=== PATIENT | male | born 1960 | race Caucasian/White ===

== ENCOUNTER 2017-03-28 06:25 | Inpatient (IN) | payer OTHER, MEDICARE ==
[~2017-03-28] VITALS: Ht 188 cm; Wt 94.3 kg
[~2017-03-28 06:25] MED LIST: CETI10 PO; ENAL20TA PO; GABA300C5 PO; HUMI40KI SQ; HYDR12.56 PO; METO100T9 PO; OXYC1TAB36 PO; PANT40TA3 PO; PARO20TA2 PO; TRAM50TA PO
[2017-03-28] MEDS ORDERED: ACETAMINOPHEN 1000 MG/100 ML 100 ML IV ONE (06:57)
[2017-03-28] MEDS ORDERED: THROMBIN (TOPICAL) 5,000 UNIT VIAL ONE (06:57)
[2017-03-28] MEDS ORDERED: BUPIVACAINE HCL PF 0.5% 30 ML VIAL ONE (06:57)
[2017-03-28] MEDS ORDERED: ceFAZolin 2 GM PREMIX 50 ML ONE ×2 (06:57→13:29)
[2017-03-28] MEDS ORDERED: VANCOMYCIN HCL 1000 MG VIAL ONE (06:57)
[2017-03-28] MEDS ORDERED: KETAMINE HCL 500 MG/5 ML VIAL ONE (06:58)
[2017-03-28] MEDS ORDERED: HYDROmorphone HCL PF 2 MG/ML VIAL ONE (06:58)
[2017-03-28] MEDS ORDERED: GENTAMICIN SULFATE 80 MG/2 ML VIAL ONE (06:58)
[2017-03-28] MEDS ORDERED: PROPOFOL 500 MG/50 ML INJ 100 ML ONE ×3 (06:58→13:38)
[2017-03-28] MEDS ORDERED: GELFOAM SIZE 100 ONE (06:58)
[2017-03-28] MEDS ORDERED: FAMOTIDINE 20 MG/2 ML VIAL ONE (06:59)
[2017-03-28] MEDS ORDERED: METOPROLOL TARTRATE 25 MG TAB PO PRN (07:00)
[2017-03-28] MEDS ORDERED: INSULIN HUMAN REGULAR 1,000 UNITS/10 ML VIAL SQ PRN (07:00)
[2017-03-28] MEDS ORDERED: LACTATED RINGER'S 1000 ML IV PRN (07:00)
[2017-03-28] MEDS ORDERED: CHLORHEXIDINE GLUCONATE 2 % 1 PACK (2 CLOTHS) TOPICAL PRN (07:00)
[2017-03-28] MEDS ORDERED: VANCOMYCIN HCL 1000 MG ON-CALL/NS 250 ML IV SCH ×2 (07:00)
[2017-03-28] MEDS ORDERED: POVIDONE IODINE 5% (ANTISEPSIS KIT) 4 APPLICATIONS EACH NARE PRN (07:00)
[2017-03-28] MEDS ORDERED: SODIUM CHLORID 0.9% 500 ML IV PRN (07:00)
[2017-03-28] MEDS ORDERED: RESP: ALBUTEROL CONC 2.5 MG/0.5 ML NEB ONE (08:23)
[2017-03-28] MEDS ORDERED: GELATIN 12 MM/7 MM FOAM ONE (13:29)
[2017-03-28] MEDS: PCA - TOTAL MG DILAUDID DELIVERED PER SHIFT SCH ×2 (14:30→22:00)
[2017-03-28] MEDS ORDERED: ACETAMINOPHEN/HYDROcodone 325 MG/10 MG TAB PO PRN (14:30)
[2017-03-28] MEDS ORDERED: DEXTROSE 50% IN WATER 50 ML SYRINGE IV PUSH PRN (14:30)
[2017-03-28] MEDS ORDERED: NALOXONE HCL 0.4 MG/ML AMP IV PUSH PRN (14:30)
[2017-03-28] MEDS ORDERED: diphenhydrAMINE HCL 50 MG/ML VIAL IV PUSH PRN (14:30)
[2017-03-28] MEDS ORDERED: cloNIDine HCL 0.1 MG TAB PO/NG PRN (14:30)
[2017-03-28] MEDS ORDERED: MENTHOL LOZENGE BUCCAL PRN (14:30)
[2017-03-28] MEDS ORDERED: BISACODYL 10 MG SUPP RECTAL PRN (14:30)
[2017-03-28] MEDS ORDERED: GLUCAGON 1 MG/ML VIAL OTHER PRN (14:30)
[2017-03-28] MEDS ORDERED: SODIUM CHLORIDE 0.9% FLUSH 5 ML FLUSH IVF PRN (14:30)
[2017-03-28] MEDS ORDERED: ONDANSETRON HCL 4 MG/2 ML VIAL IV PUSH PRN (14:30)
[2017-03-28] MEDS ORDERED: ACETAMINOPHEN 325 MG TAB PO PRN (14:30)
[2017-03-28] MEDS ORDERED: DO NOT ADM ANY ANTICOAGULANT DRUGS PRN (14:55)
[2017-03-28] MEDS: SODIUM CHLOR 0.9% 1000 ML INJ 1,000 ML IV SCH ×2 (15:35)
[2017-03-28] MEDS: RESP: ALBUTEROL 2.5 MG/3 ML NEB (SCH) INH ×3 (16:00→23:24)
[2017-03-28] MEDS: INSULIN ASPART SUPPLEMENTAL SCALE SQ SCH ×2 (16:20→21:00)
[2017-03-28] MEDS ORDERED: *RESP: ALBUTEROL 2.5 MG/3 ML NEB (PRN) PERIprocedural Use ONLY NEB ONE (16:21)
--- NOTE | 2017-03-28 16:26 | PD.OP ---
Operative Report Date of Surgery: Mar 28, 2017 Preoperative Diagnosis: Lumbar degenerative disk disease adjacent to a prior fusion Postoperative Diagnosis: Lumbar degenerative disk disease adjacent to a prior fusion Procedure: L3-L4 decompressive laminectomy, interbody arthrodesis using Peek cage filled with autologous iliac crest bone graft, L3-L4 posterolateral fusion using autologous bone graft, with demineralized bone matrix, L3-L4 instrumental fixation using transpedicular screws and rods, microsurgical dissection. Anesthesia: general Surgeon: Dewayne Figueroa Pre K Lead Teacher(s): Kaela Blanco Operation and Findings: INTRAOPERATIVE FINDINGS Severe degenerative severe adjacent level degeneration at L3-L4 INDICATIONS FOR PROCEDURE Mr Maher is a 56 year-old male who presented with intractable mechanical back pain and william evidence of lower extremity L4 radiculopathy. He was found to have severe degenerative disk disease at L3-4, adjacent to a multilevel fusion. He failed maximum nonsurgical management including multiple modalities of conservative treatment as well as pain management interventions by an interventional pain specialist. The patient has undergone a previous surgical procedure. A redo surgical decompression and arthrodhesis were indicated as a last resort. The [id number] details of the procedure, indications, alternatives, risks and potential complications were fully discussed with the patient. The patient fully understood. All the questions were answered. No guarantees were given. The patient voiced requesting the procedure and provided informed consents. The patient was offered the alternative of delaying the procedure and continuing with nonsurgical management. Mr Maher has been counseled to quit smoking and understands that nicotine use increases the chance of postoperative complications such as poor wound healing and failure of the spine to heal correctly, possibly mandating the need for further surgery. In addition the risks for anesthetic complications such as prolonged intubation or development of pneumonia are increased. DETAILS OF THE SURGICAL PROCEDURE Prior to the procedure, the surgical incision was marked in the preoperative surgical holding room, and the procedure, risks, and potential complications revisited with the patient. Placement of electrodes for intraoperative neurophysiological monitoring was completed. The patient was taken to the operative room, and following induction of general anesthesia, endotracheal intubation was performed. A Smith catheter, bilateral TONNY hose and sequential compression devices were placed and kept throughout the procedure. The patient was positioned prone, over a Houston table using gel pads and bolsters.. All pressure in the preoperative surgical holding room points were carefully padded with eggcrate and gel mattress. The eyes were taped shut after ointment was applied by the anesthesiologist to prevent corneal abrasion. A bear hugger was placed over the exposed upper body to maintain control of the core body temperature. The electrophysiological team placed needles and electrodes in the proper location and baseline SSEPs were registered prior to and after positioning. Following positioning the levels were carefully assessed using AP and lateral views with the C-arm. The surgical procedure was performed in several steps as follows: SURGICAL APPROACH Once the patient was positioned, a localizing cross-table lateral x-ray was performed with a C-arm. Two paramedian small incisions were outlined on the skin approximately 3cm from the midline. The skin incisions were made with a # 10 blade. Small bleeders were controlled with the cautery. The dissection was then carried out into deeper planes and through the thoracolumbar fascia with a Bovie. The intermuscular septum was identified and the muscles were blunted dissected along the septum. The facets and transverse process of L3 and L4 were exposed and the proper anatomical landmarks were identified. The prior instrumentation was carefully exposed and a self-retaining retractor was placed on the incision. At this point of the procedure, the cross link of the prior instrumentation was carefully exposed free of scar tissue and the rods were cut between L4 and L5. Then, , the caps of the previously placed screws were sequentially removed allowing removal of the rods and the screws from L4.. INSTRUMENTAL FIXATION At this point of the procedure, placement of bilateral transpedicular screws was necessary for stabilization of the spine. Initially, the entry point for the screw was selected anatomically at the junction of the facet joint , transverse process and para interarticularis. Bilateral transpedicular screws were placed at L3 and L4. Initially, the entry point for the screw was selected anatomically at the junction of the facet, with the transverse process, and the pars interarticularis at L3 and L4. This was started using a Giamshetti needle followed by the use of a deshpande wire. A tap was used to create the threads for the screws. Finally bilateral transpedicular screws were carefully placed bilaterally at L3 and L4 under fluoroscopic visualization. An appropriate purchase was achieved with all screws. The position of each screw was assessed anatomically with an AP, lateral, oblique Xrays. An intraoperative scan view of the spine was then performed using the iso-centric c-arm. Each screw was then assessed electrophysiologically stimulating each screw with a nerve stimulator. SURGICAL DECOMPRESSION The patient had significant mass effect over the thecal sac and exiting nerve roots L3 and L4. In order to relieve the neuro compression, it was necessary to perform a decompressive laminectomy, to allow proper decompression of the spinal canal and bilateral lateral recess and foramen. Note that the scope of such decompression was significantly more extensive than the minimal exposure necessary to perform and interbody fusion as the patient has severe facet arthropathy and degeneration of the disk at L3-L4 with hypertrophic joint facets. At this point of the procedure, the operative microscope was draped in the usual sterile fashion and brought to the field. The rest of the surgical procedure was performed using microdissection technique with exception of the closure. Under the operative microscope, a bilateral decompressive laminectomy was performed at L3-L4. The spinous processes were removed with an Leksell and the laminae was drilled bilaterally with the TPS drill exposing the ligamentum flavum. There was severe facet arthropathy and in order to achieve a proper decompression, signicand amount of facet had to be drilled with a TPS drill, which resulted in further instability. The superior border of the ligamentum flavum was carefully elevated with a nerve hook and ligamentum dissector and removed with the 3mm and 4mm Kerrison. The L3 and L4 nerve roots were identified and followed towards the foramen. A bilateral foraminotomy was performed with a Kerrison. The lateral epidural space was carefully exposed and epidural veins were coagulated with the bipolar and incised with microscissors. Gentle medial retraction of the thecal sac allowed to expose the disk space L3-L4. The annulus was coagulated with the bipolar and incised with an 11 blade and a microdiskectomy was exposed in the standard fashion allowing for excellent decompression of the neuro structures. There was severe degeneration of the disk at L3-L4. INTERBODY ARTHRODHESIS At this point of the procedure, the microdiskectomy was completed at L3-L4. The disc was coagulated with the bipolar. It was very adherent to the surrounding neural structures and extra care was taken to free it from the scar tissue. The dura was very thing, and a small durotomy could not be avoided. The herniated disc was carefully dissected from the surrounding tissue and removed with pituitary forceps. Then, a microdiscectomy was carried out in the standard fashion using straight and up-biting pituitary forceps. A good decompression of the dural sac and nerve root was achieved. The exit of the nerve root was inspected for residual disc fragments and hemostasis was secured with the bipolar. The dura was then repaired using a 6-0 Prolene. Prior to closure, the dura repaid was sealed with Duraseal. A reverse angled curet was applied to underneath the posterior longitudinal ligament and used to push the disk fragments into the disk space so they could be safely removed with the pituitary forceps. After the diskectomy was completed, it was necessary to distract the space and decorticate the endplates in order to eliminate the cartilaginous endplate and expose healthy bone appropriate to perform the interbody fusion. The endplates at L3-L4 were distracted with a paddle distractor and then carefully decorticated using a series of bone domi, ring curets, eliminating the cartilaginous endplate and exposing healthy bone. Disk distractor was used to increase the site. Initial motion was noted at the disk which was consistent with instability due to severe facet arthropathy. Once a thorough preparation of the disk space was achieved, the disk space was irrigated with antibiotic solution and the interbody arthrodesis performed by carefully impacting a Peek cage filled with autologous bone graft in position. The cage was then deployed allowing for excellent positioning of the interbody cage. A solid position of the cage with good purchase into the disk space was achieved. The position of the cage was assessed anatomically without AP and lateral probe and radiologically with a C-arm. POSTEROLATERAL FUSION Initially the transverse processes of the vertebral bodies L3 and L4, lateral surface of the facet lateral gutters of the spine at L3-L4 were carefully cleaned from all soft tissue and muscle attachments. The area was irrigated with antibiotic solution. Subsequently, the transverse processes, lateral surface of the facets and lateral gutters of the spine were thoroughly decorticated using the TPS drill with a 5 mm cutting kayode exposing cancellous bone in preparation of the posterolateral fusion. The incision was then irrigated again with antibiotic solution and the posterolateral fusion was performed by carefully packing the gutters of the spine at L3-L4 with autologous bone, and with demineralized bone matrix. As much bone as possible was packed in the gutters of the spine. COMPLETION OF INSTRUMENTATION AND CLOSURE The rods were brought to the field, applied to all the screws. The screw caps were sequentially applied. Final tightening of all screws was completed using a pre-calibrated torque wrench. The incision was again irrigated with a large amount of antibiotic solution. Hemostasis was secured with the bipolar cautery. The Valsalva maneuver performed by anesthesiologist failed to show any evidence of cerebrospinal fluid leak or bleeding. A 7 mm Houston-Stallings drain was left in the epidural space and externalized through a separate stab incision. The incision was closed in planes. 0 Vicryl was used in interrupted fashion to close the thoracolumbar fascia and the superficial fascia. The subcutaneous tissue was approximated with 3-0 Vicryl. Special care was taken to avoid any space. The skin was closed with 2-0 Ethylon. Each plane of closure was irrigated with antibiotic solution. At the end of the procedure the sponge, needle and instrument counts were all correct. Estimated blood loss was 350 cc or less. No blood transfusion was given. The entire procedure was performed using continuous electrophysiological monitoring of the somato sensorial evoked potentials and EMG. The patient received prophylactic antibiotics. The patient was then extubated and transferred to the recovery room in stable condition. Dewayne Figueroa MD Mar 28, 2017 16:26
[2017-03-28] MEDS: HYDROmorphone HCL PCA 6 MG/30 ML IV SCH (17:18)
[2017-03-28 17:30] VITALS: BP 142/62; PULSE 69; RESP 10; TEMP 97.5; O2SAT 95
[2017-03-28 18:00] VITALS: PULSE 71
--- NOTE | 2017-03-28 18:10 | RADRPT ---
EXAM DATE/TIME: 03/28/2017 09:41 [facility] COMPARISON: SPINE LUMBAR LTD (AP & LAT), March 28, 2017, 9:41. INDICATIONS : Evaluate for foreign body. MEDICAL HISTORY : Chronic obstructive pulmonary disease. Hypertension Arthritis. Smoker. SURGICAL HISTORY : Previous L4-S1 fusion. ENCOUNTER: Initial ACUITY: 1 day PAIN SCORE: Non-responsive. LOCATION: Lumbar spine. FINDINGS: A single cone down view of the lower lumbar spine was obtained intraoperatively with a matrix camera. This demonstrates that the patient is status post multilevel fusion. Levels cannot be discerned from this single view study. 2 metallic cages are noted in the interspace. There are no abnormal foreign bodies. CONCLUSION: Status post multilevel fusion with no abnormal foreign bodies. Jaylen York MD on March 28, 2017 at 18:08 Board Certified Radiologist. This report was verified electronically.
--- NOTE | 2017-03-28 18:22 | RADRPT ---
EXAM DATE/TIME: 03/28/2017 09:41 [facility] COMPARISON: No previous studies available for comparison. INDICATIONS : L3-4 Fusion. MEDICAL HISTORY : Hypertension. Chronic obstructive pulmonary disease. Arthritis. Smoker. SURGICAL HISTORY : Previous L4-S1 fusion. ENCOUNTER: Subsequent ACUITY: 1 day PAIN SCORE: Non-responsive. LOCATION: Lumbar spine. FINDINGS: 4 images were recorded digitally in the operating room using C-arm during 4 level posterior instrumen tation and 2 level interspace device deployment. CONCLUSION: Intraoperative images. Clinton Robles MD on March 28, 2017 at 18:19 Board Certified Radiologist. This report was verified electronically.
[2017-03-28 19:43] VITALS: O2SAT 98
[2017-03-28 20:00] VITALS: BP 147/72; PULSE 78; RESP 15; TEMP 97.9; O2SAT 97
[2017-03-28] MEDS: DOCUSATE SODIUM 100 MG CAP PO SCH (20:56)
[2017-03-28] MEDS: GABAPENTIN 300 MG CAP PO SCH (20:56)
[2017-03-28] MEDS: SODIUM CHLORIDE 0.9% FLUSH 5 ML FLUSH IVF SCH (21:00)
[2017-03-28] MEDS: CHLORHEXIDINE GLUCONATE 4% SOLN 120 ML BTL TOP SCH (21:00)
[2017-03-28] MEDS: CYCLOBENZAPRINE HCL 10 MG TAB PO PRN (21:09)
[2017-03-28 22:00] VITALS: PULSE 82
[2017-03-28] MEDS: ceFAZolin 2 GM PREMIX 50 ML IV SCH (23:50)
[2017-03-29] VITALS (10 sets, daily range): BP systolic 96–126; BP diastolic 47–68; PULSE 68–84; RESP 12–17; TEMP 97.9–99.8; O2SAT 95–99
[2017-03-29] MEDS: ACETAMINOPHEN/HYDROcodone 325 MG/10 MG TAB PO PRN ×5 (03:02→20:10)
[2017-03-29] MEDS: HYDROmorphone HCL PCA 6 MG/30 ML IV SCH ×2 (03:10→16:17)
[2017-03-29] MEDS: RESP: ALBUTEROL 2.5 MG/3 ML NEB (SCH) INH ×2 (03:38→07:44)
[2017-03-29 05:22] LABS: AUTOMATED NEUTROPHIL # 5.5 TH/MM3 (1.8-7.7); BASOPHIL % 0.4 % (0.0-2.0); EOSINOPHIL % 0.1 % (0.0-4.0); LYMPH % 23.9 % (9.0-44.0); LYMPHOCYTE # 1.9 TH/MM3 (1.0-4.8); MEAN CELL VOLUME 96.5 FL (80.0-100.0); MEAN CORPUSCULAR HEMOGLOBIN 33.1 PG (27.0-34.0); MEAN CORPUSCULAR HGB CONC 34.3 % (32.0-36.0); MEAN PLATELET VOLUME 6.4 FL (7.0-11.0); MONO % 6.1 % (0.0-8.0); MONOCYTE # 0.5 TH/MM3 (0-0.9); NEUT % 69.5 % (16.0-70.0); PLATELET COUNT 214 TH/MM3 (150-450); RED BLOOD COUNT 3.32 MIL/MM3 (4.50-5.90); WHITE BLOOD COUNT 7.9 TH/MM3 (4.0-11.0)
[2017-03-29 05:57] LABS: BICARBONATE 25.7 MEQ/L (21.0-32.0); CALCIUM 7.4 MG/DL (8.5-10.1); CREATININE 0.75 MG/DL (0.60-1.30)
[2017-03-29] MEDS: PCA - TOTAL MG DILAUDID DELIVERED PER SHIFT SCH ×3 (06:00→21:59)
[2017-03-29] MEDS: SODIUM CHLOR 0.9% 1000 ML INJ 1,000 ML IV SCH ×4 (06:55→20:16)
[2017-03-29] MEDS: PANTOPRAZOLE SOD 40 MG DELAYED RELEASE TAB PO SCH (07:45)
[2017-03-29] MEDS: ceFAZolin 2 GM PREMIX 50 ML IV SCH ×2 (07:45→16:18)
[2017-03-29] MEDS: METOPROLOL SUCCINATE 50 MG EXTENDED RELEASE TAB PO SCH (07:45)
[2017-03-29] MEDS: HYDROCHLOROTHIAZIDE 12.5 MG CAP PO SCH (07:46)
[2017-03-29] MEDS: SODIUM CHLORIDE 0.9% FLUSH 5 ML FLUSH IVF SCH ×2 (07:46→20:10)
[2017-03-29] MEDS: ENALAPRIL MALEATE 10 MG TAB PO SCH (07:46)
[2017-03-29] MEDS: INSULIN ASPART SUPPLEMENTAL SCALE SQ SCH ×4 (07:59→21:00)
--- NOTE | 2017-03-29 08:47 | HHI.NSPN ---
(Amelia Norris) Note Status Status: Progress Note (Amelia Norris) Interval History Interval History Lumbar degenerative disk disease adjacent to a prior fusion Postoperative Diagnosis: Lumbar degenerative disk disease adjacent to a prior fusion Mr. Maher is s/p L3-L4 decompressive laminectomy, interbody arthrodesis using Peek cage filled with autologous iliac crest bone graft, L3-L4 posterolateral fusion using autologous bone graft, with demineralized bone matrix, L3-L4 instrumental fixation using transpedicular screws and rods on 03/28/17 for severe degenerative severe adjacent level degeneration at L3-L4. 03/29: c/o of moderate surgical pain, on Dilauded MOTEL CLERK and oral lortab. (Amelia Norris) Labs, Micro, & Vital Signs Results Date Time Temp Pulse Resp B/P (MAP) Pulse Ox O2 Delivery O2 Flow Rate FiO2 03/29/17 07:44 98 Nasal Cannula 3.00 03/29/17 06:00 84 03/29/17 06:00 18 03/29/17 04:02 15 03/29/17 04:00 84 03/29/17 04:00 97.9 81 15 104/55 (71) 98 03/29/17 03:48 16 03/29/17 03:10 18 03/29/17 02:00 80 03/29/17 00:00 84 03/29/17 00:00 98.0 84 15 120/59 (79) 98 03/28/17 22:00 82 03/28/17 20:00 97.9 78 15 147/72 (97) 97 03/28/17 20:00 98 Nasal Cannula 2.00 03/28/17 20:00 78 03/28/17 19:43 98 Nasal Cannula 3.00 03/28/17 18:11 97 Nasal Cannula 4.00 03/28/17 18:00 71 03/28/17 17:30 97.5 69 10 142/62 (88) 95 03/28/17 17:30 95 Nasal Cannula 2.00 03/28/17 17:30 69 03/28/17 17:18 16 10/31/17 17:00 76 16 138/71 (93) 97 Nasal Cannula 2 03/28/17 16:30 70 16 149/79 (102) 100 Nasal Cannula 2 03/28/17 16:00 74 16 148/83 (104) 100 Nasal Cannula 2 03/28/17 15:45 76 16 157/79 (105) 97 Nasal Cannula 2 03/28/17 15:30 82 16 136/74 (94) 98 Nasal Cannula 2 03/28/17 15:15 82 16 122/66 (84) 98 Nasal Cannula 3 03/28/17 15:00 78 16 105/57 (73) 100 Nasal Cannula 3 03/28/17 14:55 97.7 86 16 110/57 (74) 97 Nasal Cannula 3 Constitutional Vital Signs Date Time Temp Pulse Resp B/P (MAP) Pulse Ox O2 Delivery O2 Flow Rate FiO2 03/29/17 07:44 98 Nasal Cannula 3.00 03/29/17 06:00 84 03/29/17 06:00 18 03/29/17 04:02 15 03/29/17 04:00 84 03/29/17 04:00 97.9 81 15 104/55 (71) 98 03/29/17 03:48 16 03/29/17 03:10 18 03/29/17 02:00 80 03/29/17 00:00 84 03/29/17 00:00 98.0 84 15 120/59 (79) 98 03/28/17 22:00 82 03/28/17 20:00 97.9 78 15 147/72 (97) 97 03/28/17 20:00 98 Nasal Cannula 2.00 03/28/17 20:00 78 03/28/17 19:43 98 Nasal Cannula 3.00 03/28/17 18:11 97 Nasal Cannula 4.00 03/28/17 18:00 71 03/28/17 17:30 97.5 69 10 142/62 (88) 95 03/28/17 17:30 95 Nasal Cannula 2.00 03/28/17 17:30 69 03/28/17 17:18 16 03/28/17 17:00 76 16 138/71 (93) 97 Nasal Cannula 2 03/28/17 16:30 70 16 149/79 (102) 100 Nasal Cannula 2 03/28/17 16:00 74 16 148/83 (104) 100 Nasal Cannula 2 03/28/17 15:45 76 16 157/79 (105) 97 Nasal Cannula 2 03/28/17 15:30 82 16 136/74 (94) 98 Nasal Cannula 2 03/28/17 15:15 82 16 122/66 (84) 98 Nasal Cannula 3 03/28/17 15:00 78 16 105/57 (73) 100 Nasal Cannula 3 03/28/17 14:55 97.7 86 16 110/57 (74) 97 Nasal Cannula 3 (Amelia Norris) Review of Systems Constitutional: DENIES: Fever, Chills Respiratory: COMPLAINS OF: Cough, Sputum production, DENIES: Hemoptysis Cardiovascular: DENIES: Chest pain Gastrointestinal: DENIES: Abdominal pain, Nausea, Vomiting Musculoskeletal: COMPLAINS OF: Back pain (Amelia Norris) Physical Exam Mr. Maher is alert, awake and oriented to time, place and person. Speech is fluent. Cranial nerve examination: pupils equal, round and reactive to light. Extra- ocular movements are intact. Facial motor are normal and symmetrical. Neck is soft and supple Muscle strength: moving all major muscle groups of upper and lower extremities, exam limited due to complaint of surgical pain Sensory examination is intact to light touch lower extremities. There is a bilateral plantar flexion response. (Amelia Norris) Medications Current Medications Current Medications Medications (Trade) Dose Ordered Sig/Emmanuel Route PRN Reason Start Time Stop Time Status Last Admin Dose Admin Sodium Chloride 1,000 ml @ 30 mls/hr Q24H IV 03/28/17 07:00 03/28/17 15:35 Vancomycin HCl 1000 mg/Sodium Chloride 250 ml @ 250 mls/hr PRESCHOOL AIDE IV 03/28/17 07:00 03/31/17 06:59 03/28/17 11:22 Lactated Ringer's 1,000 ml @ 30 mls/hr Q24H PRN IV SEE LABEL COMMENTS 03/28/17 07:00 03/31/17 06:59 Sodium Chloride 500 ml @ 30 mls/hr [id number] PRN IV SEE LABEL COMMENTS 03/28/17 07:00 03/31/17 06:59 Metoprolol Tartrate (Lopressor) 25 mg PRESCHOOL AIDE PRN PO SEE LABEL COMMENTS 03/28/17 07:00 03/31/17 06:59 Povidone Iodine (Betadine 5% Antisepsis Kit) 1 applic PRESCHOOL AIDE PRN EACH NARE SEE LABEL COMMENTS 03/28/17 07:00 03/31/17 06:59 Chlorhexidine Gluconate (Chlorhexidine 2% Cloth) 3 pack PRESCHOOL AIDE PRN TOPICAL SEE LABEL COMMENTS 03/28/17 07:00 03/31/17 06:59 Insulin Human Regular (NovoLIN R INJ) See Protocol Table ... PRESCHOOL AIDE PRN SQ SEE PROTOCOL TABLE 03/28/17 07:00 03/31/17 06:59 Sodium Chloride 1,000 ml @ 100 mls/hr Q10H IV 03/28/17 14:25 03/29/17 06:55 IV Flush (NS Flush) 2 ml UNSCH PRN IVF FLUSH AFTER USING IV ACCESS 03/28/17 14:30 IV Flush (NS Flush) 2 ml BID IVF 03/28/17 21:00 03/29/17 07:46 Bisacodyl (Dulcolax Supp) 10 mg DAILY PRN RECTAL CONSTIPATION 03/28/17 14:30 Docusate Sodium (Colace) 100 mg BID PO 03/28/17 21:00 03/28/17 20:56 Pantoprazole Sodium (Protonix) 40 mg DAILY PO 03/29/17 09:00 03/29/17 07:45 Ondansetron HCl (Zofran Inj) 4 mg Q6H PRN IV PUSH NAUSEA OR VOMITING 03/28/17 14:30 Cyclobenzaprine HCl (Flexeril) 10 mg Q8H PRN PO MUSCLE SPASM 03/28/17 14:30 03/28/17 21:09 Clonidine (Catapres) 0.1 mg Q6H PRN PO/NG SYS BP GREATER THAN 170 MMHG 03/28/17 14:30 Acetaminophen (Tylenol) 650 mg Q4H PRN PO TEMPERATURE > 101.5 F 03/28/17 14:30 Menthol (Tererro Simón) 1 lozenge UNSCH PRN BUCCAL SORE THROAT 03/28/17 14:30 Chlorhexidine Gluconate (Hibiclens 4% Top Soln) 1 applic HS TOP 03/28/17 21:00 03/30/17 21:01 Dextrose (D50w (Syr) Inj) 50 ml UNSCH PRN IV PUSH HYPOGLYCEMIA-SEE COMMENTS 03/28/17 14:30 Glucagon (Glucagon Inj) 1 mg UNSCH PRN OTHER HYPOGLYCEMIA-SEE COMMENTS 03/28/17 14:30 Insulin Aspart (NovoLOG SUPPLEMENTAL SCALE) 1 ACHS SLIDING SCALE SQ 03/28/17 17:00 03/28/17 16:20 Naloxone HCl (Narcan Inj) 0.4 mg UNSCH PRN IV PUSH RESPIRATORY RATE LESS THAN 10 03/28/17 14:30 Diphenhydramine HCl (Benadryl Inj) 25 mg Q6H PRN IV PUSH ITCHING 03/28/17 14:30 Hydromorphone HCl (Dilaudid MOTEL CLERK Inj) 6 mg UNSCH IV 03/28/17 14:30 03/29/17 03:10 MOTEL CLERK Dosage Infused (Pha) 1 Q8HR .XX 03/28/17 14:30 03/29/17 06:00 Acetaminophen/ Hydrocodone Bitart ([place] 10-325 Mg) 1 tab Q4H PRN PO PAIN SCALE 1 TO 5 03/28/17 14:30 Acetaminophen/ Hydrocodone Bitart ([place] 10-325 Mg) 2 tab Q4H PRN PO PAIN SCALE 6 TO 10 03/28/17 14:30 03/29/17 08:05 Enalapril Maleate (Vasotec) 40 mg DAILY PO 03/29/17 09:00 03/29/17 07:46 Gabapentin (Neurontin) 600 mg HS PO 03/28/17 21:00 03/28/17 20:56 Hydrochlorothiazide (Microzide) 12.5 mg DAILY PO 03/29/17 09:00 03/29/17 07:46 Metoprolol Succinate (Toprol Xl) 100 mg DAILY PO 03/29/17 09:00 03/29/17 07:45 Miscellaneous Information ALL NURSING DEPARTME... UNSCH PRN .XX SEE LABEL COMMENTS 03/28/17 14:55 03/29/17 14:54 Albuterol Sulfate (Albuterol Neb) 2.5 mg Q2HR NEB PRN INH DYSPNEA 03/29/17 12:00 UNV Albuterol/ Ipratropium (Duoneb Neb) 1 ampule QID NEB NEB 03/29/17 12:00 UNV (Amelia Norris) Medical Decision Making MDM Remarks 56 year old male s/p L3-4 PLIF for adjacent level degenerative disease (Amelia Norris) Plan Plan Remarks cont pain control with MOTEL CLERK pump, oral medications prn, cont bed rest today, HOB no greater than 20 degrees, keep craig in as patient remains in strict bed rest, SCDs and TEDs for dvt prophylaxis IS every hour, neb treatments transfer out of unit to 6N (Amelia Norris) Attending Statement The exam, history, and the medical decision-making described in the above note were completed with the assistance of the mid-level provider. I reviewed and agree with the findings presented. I attest that I had a [id number] encounter with the patient on the same day, and personally performed and documented my assessment and findings in the medical record. (Dewayne Figueroa MD) Amelia Norris Mar 29, 2017 08:47 Dewayne Figueroa MD Mar 31, 2017 21:38
--- NOTE | 2017-03-29 08:47 | HHI.NSPN ---
(Amelia Norris) Note Status Status: Progress Note (Amelia Norris) Interval History Interval History Lumbar degenerative disk disease adjacent to a prior fusion Postoperative Diagnosis: Lumbar degenerative disk disease adjacent to a prior fusion Mr. Maher is s/p L3-L4 decompressive laminectomy, interbody arthrodesis using Peek cage filled with autologous iliac crest bone graft, L3-L4 posterolateral fusion using autologous bone graft, with demineralized bone matrix, L3-L4 instrumental fixation using transpedicular screws and rods on 03/28/17 for severe degenerative severe adjacent level degeneration at L3-L4. 03/29: c/o of moderate surgical pain, on Dilauded [employer] CHIEF CLERK and oral lortab. (Amelia Norris) Labs, Micro, & Vital Signs Results Date Time Temp Pulse Resp B/P (MAP) Pulse Ox O2 Delivery O2 Flow Rate FiO2 03/29/17 07:44 98 Nasal Cannula 3.00 03/29/17 06:00 84 03/29/17 06:00 18 03/29/17 04:02 15 03/29/17 04:00 84 03/29/17 04:00 97.9 81 15 104/55 (71) 98 03/29/17 03:48 16 03/29/17 03:10 18 03/29/17 02:00 80 03/29/17 00:00 84 03/29/17 00:00 98.0 84 15 120/59 (79) 98 03/28/17 22:00 82 03/28/17 20:00 97.9 78 15 147/72 (97) 97 03/28/17 20:00 98 Nasal Cannula 2.00 03/28/17 20:00 78 03/28/17 19:43 98 Nasal Cannula 3.00 03/28/17 18:11 97 Nasal Cannula 4.00 03/28/17 18:00 71 03/28/17 17:30 97.5 69 10 142/62 (88) 95 03/28/17 17:30 95 Nasal Cannula 2.00 03/28/17 17:30 69 03/28/17 17:18 16 10/31/17 17:00 76 16 138/71 (93) 97 Nasal Cannula 2 03/28/17 16:30 70 16 149/79 (102) 100 Nasal Cannula 2 03/28/17 16:00 74 16 148/83 (104) 100 Nasal Cannula 2 03/28/17 15:45 76 16 157/79 (105) 97 Nasal Cannula 2 03/28/17 15:30 82 16 136/74 (94) 98 Nasal Cannula 2 03/28/17 15:15 82 16 122/66 (84) 98 Nasal Cannula 3 03/28/17 15:00 78 16 105/57 (73) 100 Nasal Cannula 3 03/28/17 14:55 97.7 86 16 110/57 (74) 97 Nasal Cannula 3 Constitutional Vital Signs Date Time Temp Pulse Resp B/P (MAP) Pulse Ox O2 Delivery O2 Flow Rate FiO2 03/29/17 07:44 98 Nasal Cannula 3.00 03/29/17 06:00 84 03/29/17 06:00 18 03/29/17 04:02 15 03/29/17 04:00 84 03/29/17 04:00 97.9 81 15 104/55 (71) 98 03/29/17 03:48 16 03/29/17 03:10 18 03/29/17 02:00 80 03/29/17 00:00 84 03/29/17 00:00 98.0 84 15 120/59 (79) 98 03/28/17 22:00 82 03/28/17 20:00 97.9 78 15 147/72 (97) 97 03/28/17 20:00 98 Nasal Cannula 2.00 03/28/17 20:00 78 03/28/17 19:43 98 Nasal Cannula 3.00 03/28/17 18:11 97 Nasal Cannula 4.00 03/28/17 18:00 71 03/28/17 17:30 97.5 69 10 142/62 (88) 95 03/28/17 17:30 95 Nasal Cannula 2.00 03/28/17 17:30 69 03/28/17 17:18 16 03/28/17 17:00 76 16 138/71 (93) 97 Nasal Cannula 2 03/28/17 16:30 70 16 149/79 (102) 100 Nasal Cannula 2 03/28/17 16:00 74 16 148/83 (104) 100 Nasal Cannula 2 03/28/17 15:45 76 16 157/79 (105) 97 Nasal Cannula 2 03/28/17 15:30 82 16 136/74 (94) 98 Nasal Cannula 2 03/28/17 15:15 82 16 122/66 (84) 98 Nasal Cannula 3 03/28/17 15:00 78 16 105/57 (73) 100 Nasal Cannula 3 03/28/17 14:55 97.7 86 16 110/57 (74) 97 Nasal Cannula 3 (Amelia Norris) Review of Systems Constitutional: DENIES: Fever, Chills Respiratory: COMPLAINS OF: Cough, Sputum production, DENIES: Hemoptysis Cardiovascular: DENIES: Chest pain Gastrointestinal: DENIES: Abdominal pain, Nausea, Vomiting Musculoskeletal: COMPLAINS OF: Back pain (Amelia Norris) Physical Exam Mr. Maher is alert, awake and oriented to time, place and person. Speech is fluent. Cranial nerve examination: pupils equal, round and reactive to light. Extra- ocular movements are intact. Facial motor are normal and symmetrical. Neck is soft and supple Muscle strength: moving all major muscle groups of upper and lower extremities, exam limited due to complaint of surgical pain Sensory examination is intact to light touch lower extremities. There is a bilateral plantar flexion response. (Amelia Norris) Medications Current Medications Current Medications Medications (Trade) Dose Ordered Sig/Emmanuel Route PRN Reason Start Time Stop Time Status Last Admin Dose Admin Sodium Chloride 1,000 ml @ 30 mls/hr Q24H IV 03/28/17 07:00 03/28/17 15:35 Vancomycin HCl 1000 mg/Sodium Chloride 250 ml @ 250 mls/hr PEDIATRIC DENTAL ASSISTANT IV 03/28/17 07:00 03/31/17 06:59 03/28/17 11:22 Lactated Ringer's 1,000 ml @ 30 mls/hr Q24H PRN IV SEE LABEL COMMENTS 03/28/17 07:00 03/31/17 06:59 Sodium Chloride 500 ml @ 30 mls/hr [id number] PRN IV SEE LABEL COMMENTS 03/28/17 07:00 03/31/17 06:59 Metoprolol Tartrate (Lopressor) 25 mg PEDIATRIC DENTAL ASSISTANT PRN PO SEE LABEL COMMENTS 03/28/17 07:00 03/31/17 06:59 Povidone Iodine (Betadine 5% Antisepsis Kit) 1 applic PEDIATRIC DENTAL ASSISTANT PRN EACH NARE SEE LABEL COMMENTS 03/28/17 07:00 03/31/17 06:59 Chlorhexidine Gluconate (Chlorhexidine 2% Cloth) 3 pack PEDIATRIC DENTAL ASSISTANT PRN TOPICAL SEE LABEL COMMENTS 03/28/17 07:00 03/31/17 06:59 Insulin Human Regular (NovoLIN R INJ) See Protocol Table ... PEDIATRIC DENTAL ASSISTANT PRN SQ SEE PROTOCOL TABLE 03/28/17 07:00 03/31/17 06:59 Sodium Chloride 1,000 ml @ 100 mls/hr Q10H IV 03/28/17 14:25 03/29/17 06:55 IV Flush (NS Flush) 2 ml UNSCH PRN IVF FLUSH AFTER USING IV ACCESS 03/28/17 14:30 IV Flush (NS Flush) 2 ml BID IVF 03/28/17 21:00 03/29/17 07:46 Bisacodyl (Dulcolax Supp) 10 mg DAILY PRN RECTAL CONSTIPATION 03/28/17 14:30 Docusate Sodium (Colace) 100 mg BID PO 03/28/17 21:00 03/28/17 20:56 Pantoprazole Sodium (Protonix) 40 mg DAILY PO 03/29/17 09:00 03/29/17 07:45 Ondansetron HCl (Zofran Inj) 4 mg Q6H PRN IV PUSH NAUSEA OR VOMITING 03/28/17 14:30 Cyclobenzaprine HCl (Flexeril) 10 mg Q8H PRN PO MUSCLE SPASM 03/28/17 14:30 03/28/17 21:09 Clonidine (Catapres) 0.1 mg Q6H PRN PO/NG SYS BP GREATER THAN 170 MMHG 03/28/17 14:30 Acetaminophen (Tylenol) 650 mg Q4H PRN PO TEMPERATURE > 101.5 F 03/28/17 14:30 Menthol ([place] Simón) 1 lozenge UNSCH PRN BUCCAL SORE THROAT 03/28/17 14:30 Chlorhexidine Gluconate (Hibiclens 4% Top Soln) 1 applic HS TOP 03/28/17 21:00 03/30/17 21:01 Dextrose (D50w (Syr) Inj) 50 ml UNSCH PRN IV PUSH HYPOGLYCEMIA-SEE COMMENTS 03/28/17 14:30 Glucagon (Glucagon Inj) 1 mg UNSCH PRN OTHER HYPOGLYCEMIA-SEE COMMENTS 03/28/17 14:30 Insulin Aspart (NovoLOG SUPPLEMENTAL SCALE) 1 ACHS SLIDING SCALE SQ 03/28/17 17:00 03/28/17 16:20 Naloxone HCl (Narcan Inj) 0.4 mg UNSCH PRN IV PUSH RESPIRATORY RATE LESS THAN 10 03/28/17 14:30 Diphenhydramine HCl (Benadryl Inj) 25 mg Q6H PRN IV PUSH ITCHING 03/28/17 14:30 Hydromorphone HCl (Dilaudid [employer] CHIEF CLERK Inj) 6 mg UNSCH IV 03/28/17 14:30 03/29/17 03:10 [employer] CHIEF CLERK Dosage Infused (Pha) 1 Q8HR .XX 03/28/17 14:30 03/29/17 06:00 Acetaminophen/ Hydrocodone Bitart ([place] 10-325 Mg) 1 tab Q4H PRN PO PAIN SCALE 1 TO 5 03/28/17 14:30 Acetaminophen/ Hydrocodone Bitart ([place] 10-325 Mg) 2 tab Q4H PRN PO PAIN SCALE 6 TO 10 03/28/17 14:30 03/29/17 08:05 Enalapril Maleate (Vasotec) 40 mg DAILY PO 03/29/17 09:00 03/29/17 07:46 Gabapentin (Neurontin) 600 mg HS PO 03/28/17 21:00 03/28/17 20:56 Hydrochlorothiazide (Microzide) 12.5 mg DAILY PO 03/29/17 09:00 03/29/17 07:46 Metoprolol Succinate (Toprol Xl) 100 mg DAILY PO 03/29/17 09:00 03/29/17 07:45 Miscellaneous Information ALL NURSING DEPARTME... UNSCH PRN .XX SEE LABEL COMMENTS 03/28/17 14:55 03/29/17 14:54 Albuterol Sulfate (Albuterol Neb) 2.5 mg Q2HR NEB PRN INH DYSPNEA 03/29/17 12:00 UNV Albuterol/ Ipratropium (Duoneb Neb) 1 ampule QID NEB NEB 03/29/17 12:00 UNV (Amelia Norris) Medical Decision Making MDM Remarks 56 year old male s/p L3-4 PLIF for adjacent level degenerative disease (Amelia Norris) Plan Plan Remarks cont pain control with [employer] CHIEF CLERK pump, oral medications prn, cont bed rest today, HOB no greater than 20 degrees, keep craig in as patient remains in strict bed rest, SCDs and TEDs for dvt prophylaxis IS every hour, neb treatments transfer out of unit to 6N (Amelia Norris) Attending Statement The exam, history, and the medical decision-making described in the above note were completed with the assistance of the mid-level provider. I reviewed and agree with the findings presented. I attest that I had a [id number] encounter with the patient on the same day, and personally performed and documented my assessment and findings in the medical record. (Dewayne Figueroa MD) Amelia Norris Mar 29, 2017 08:47 Dewayne Figueroa MD Mar 31, 2017 21:38
--- NOTE | 2017-03-29 08:47 | HHI.NSPN ---
(Amelia Norris) Note Status Status: Progress Note (Amelia Norris) Interval History Interval History Lumbar degenerative disk disease adjacent to a prior fusion Postoperative Diagnosis: Lumbar degenerative disk disease adjacent to a prior fusion Mr. Maher is s/p L3-L4 decompressive laminectomy, interbody arthrodesis using Peek cage filled with autologous iliac crest bone graft, L3-L4 posterolateral fusion using autologous bone graft, with demineralized bone matrix, L3-L4 instrumental fixation using transpedicular screws and rods on 03/28/17 for severe degenerative severe adjacent level degeneration at L3-L4. 03/29: c/o of moderate surgical pain, on Dilauded DIRECTOR OF TRAINING and oral lortab. (Amelia Norris) Labs, Micro, & Vital Signs Results Date Time Temp Pulse Resp B/P (MAP) Pulse Ox O2 Delivery O2 Flow Rate FiO2 03/29/17 07:44 98 Nasal Cannula 3.00 03/29/17 06:00 84 03/29/17 06:00 18 03/29/17 04:02 15 03/29/17 04:00 84 03/29/17 04:00 97.9 81 15 104/55 (71) 98 03/29/17 03:48 16 03/29/17 03:10 18 03/29/17 02:00 80 03/29/17 00:00 84 03/29/17 00:00 98.0 84 15 120/59 (79) 98 03/28/17 22:00 82 03/28/17 20:00 97.9 78 15 147/72 (97) 97 03/28/17 20:00 98 Nasal Cannula 2.00 03/28/17 20:00 78 03/28/17 19:43 98 Nasal Cannula 3.00 03/28/17 18:11 97 Nasal Cannula 4.00 03/28/17 18:00 71 03/28/17 17:30 97.5 69 10 142/62 (88) 95 03/28/17 17:30 95 Nasal Cannula 2.00 03/28/17 17:30 69 03/28/17 17:18 16 10/31/17 17:00 76 16 138/71 (93) 97 Nasal Cannula 2 03/28/17 16:30 70 16 149/79 (102) 100 Nasal Cannula 2 03/28/17 16:00 74 16 148/83 (104) 100 Nasal Cannula 2 03/28/17 15:45 76 16 157/79 (105) 97 Nasal Cannula 2 03/28/17 15:30 82 16 136/74 (94) 98 Nasal Cannula 2 03/28/17 15:15 82 16 122/66 (84) 98 Nasal Cannula 3 03/28/17 15:00 78 16 105/57 (73) 100 Nasal Cannula 3 03/28/17 14:55 97.7 86 16 110/57 (74) 97 Nasal Cannula 3 Constitutional Vital Signs Date Time Temp Pulse Resp B/P (MAP) Pulse Ox O2 Delivery O2 Flow Rate FiO2 03/29/17 07:44 98 Nasal Cannula 3.00 03/29/17 06:00 84 03/29/17 06:00 18 03/29/17 04:02 15 03/29/17 04:00 84 03/29/17 04:00 97.9 81 15 104/55 (71) 98 03/29/17 03:48 16 03/29/17 03:10 18 03/29/17 02:00 80 03/29/17 00:00 84 03/29/17 00:00 98.0 84 15 120/59 (79) 98 03/28/17 22:00 82 03/28/17 20:00 97.9 78 15 147/72 (97) 97 03/28/17 20:00 98 Nasal Cannula 2.00 03/28/17 20:00 78 03/28/17 19:43 98 Nasal Cannula 3.00 03/28/17 18:11 97 Nasal Cannula 4.00 03/28/17 18:00 71 03/28/17 17:30 97.5 69 10 142/62 (88) 95 03/28/17 17:30 95 Nasal Cannula 2.00 03/28/17 17:30 69 03/28/17 17:18 16 03/28/17 17:00 76 16 138/71 (93) 97 Nasal Cannula 2 03/28/17 16:30 70 16 149/79 (102) 100 Nasal Cannula 2 03/28/17 16:00 74 16 148/83 (104) 100 Nasal Cannula 2 03/28/17 15:45 76 16 157/79 (105) 97 Nasal Cannula 2 03/28/17 15:30 82 16 136/74 (94) 98 Nasal Cannula 2 03/28/17 15:15 82 16 122/66 (84) 98 Nasal Cannula 3 03/28/17 15:00 78 16 105/57 (73) 100 Nasal Cannula 3 03/28/17 14:55 97.7 86 16 110/57 (74) 97 Nasal Cannula 3 (Amelia Norris) Review of Systems Constitutional: DENIES: Fever, Chills Respiratory: COMPLAINS OF: Cough, Sputum production, DENIES: Hemoptysis Cardiovascular: DENIES: Chest pain Gastrointestinal: DENIES: Abdominal pain, Nausea, Vomiting Musculoskeletal: COMPLAINS OF: Back pain (Amelia Norris) Physical Exam Mr. Maher is alert, awake and oriented to time, place and person. Speech is fluent. Cranial nerve examination: pupils equal, round and reactive to light. Extra- ocular movements are intact. Facial motor are normal and symmetrical. Neck is soft and supple Muscle strength: moving all major muscle groups of upper and lower extremities, exam limited due to complaint of surgical pain Sensory examination is intact to light touch lower extremities. There is a bilateral plantar flexion response. (Amelia Norris) Medications Current Medications Current Medications Medications (Trade) Dose Ordered Sig/Emmanuel Route PRN Reason Start Time Stop Time Status Last Admin Dose Admin Sodium Chloride 1,000 ml @ 30 mls/hr Q24H IV 03/28/17 07:00 03/28/17 15:35 Vancomycin HCl 1000 mg/Sodium Chloride 250 ml @ 250 mls/hr BOAT CAPTAIN IV 03/28/17 07:00 03/31/17 06:59 03/28/17 11:22 Lactated Ringer's 1,000 ml @ 30 mls/hr Q24H PRN IV SEE LABEL COMMENTS 03/28/17 07:00 03/31/17 06:59 Sodium Chloride 500 ml @ 30 mls/hr [id number] PRN IV SEE LABEL COMMENTS 03/28/17 07:00 03/31/17 06:59 Metoprolol Tartrate (Lopressor) 25 mg BOAT CAPTAIN PRN PO SEE LABEL COMMENTS 03/28/17 07:00 03/31/17 06:59 Povidone Iodine (Betadine 5% Antisepsis Kit) 1 applic BOAT CAPTAIN PRN EACH NARE SEE LABEL COMMENTS 03/28/17 07:00 03/31/17 06:59 Chlorhexidine Gluconate (Chlorhexidine 2% Cloth) 3 pack BOAT CAPTAIN PRN TOPICAL SEE LABEL COMMENTS 03/28/17 07:00 03/31/17 06:59 Insulin Human Regular (NovoLIN R INJ) See Protocol Table ... BOAT CAPTAIN PRN SQ SEE PROTOCOL TABLE 03/28/17 07:00 03/31/17 06:59 Sodium Chloride 1,000 ml @ 100 mls/hr Q10H IV 03/28/17 14:25 03/29/17 06:55 IV Flush (NS Flush) 2 ml UNSCH PRN IVF FLUSH AFTER USING IV ACCESS 03/28/17 14:30 IV Flush (NS Flush) 2 ml BID IVF 03/28/17 21:00 03/29/17 07:46 Bisacodyl (Dulcolax Supp) 10 mg DAILY PRN RECTAL CONSTIPATION 03/28/17 14:30 Docusate Sodium (Colace) 100 mg BID PO 03/28/17 21:00 03/28/17 20:56 Pantoprazole Sodium (Protonix) 40 mg DAILY PO 03/29/17 09:00 03/29/17 07:45 Ondansetron HCl (Zofran Inj) 4 mg Q6H PRN IV PUSH NAUSEA OR VOMITING 03/28/17 14:30 Cyclobenzaprine HCl (Flexeril) 10 mg Q8H PRN PO MUSCLE SPASM 03/28/17 14:30 03/28/17 21:09 Clonidine (Catapres) 0.1 mg Q6H PRN PO/NG SYS BP GREATER THAN 170 MMHG 03/28/17 14:30 Acetaminophen (Tylenol) 650 mg Q4H PRN PO TEMPERATURE > 101.5 F 03/28/17 14:30 Menthol ([place] Simón) 1 lozenge UNSCH PRN BUCCAL SORE THROAT 03/28/17 14:30 Chlorhexidine Gluconate (Hibiclens 4% Top Soln) 1 applic HS TOP 03/28/17 21:00 03/30/17 21:01 Dextrose (D50w (Syr) Inj) 50 ml UNSCH PRN IV PUSH HYPOGLYCEMIA-SEE COMMENTS 03/28/17 14:30 Glucagon (Glucagon Inj) 1 mg UNSCH PRN OTHER HYPOGLYCEMIA-SEE COMMENTS 03/28/17 14:30 Insulin Aspart (NovoLOG SUPPLEMENTAL SCALE) 1 ACHS SLIDING SCALE SQ 03/28/17 17:00 03/28/17 16:20 Naloxone HCl (Narcan Inj) 0.4 mg UNSCH PRN IV PUSH RESPIRATORY RATE LESS THAN 10 03/28/17 14:30 Diphenhydramine HCl (Benadryl Inj) 25 mg Q6H PRN IV PUSH ITCHING 03/28/17 14:30 Hydromorphone HCl (Dilaudid DIRECTOR OF TRAINING Inj) 6 mg UNSCH IV 03/28/17 14:30 03/29/17 03:10 DIRECTOR OF TRAINING Dosage Infused (Pha) 1 Q8HR .XX 03/28/17 14:30 03/29/17 06:00 Acetaminophen/ Hydrocodone Bitart ([place] 10-325 Mg) 1 tab Q4H PRN PO PAIN SCALE 1 TO 5 03/28/17 14:30 Acetaminophen/ Hydrocodone Bitart ([place] 10-325 Mg) 2 tab Q4H PRN PO PAIN SCALE 6 TO 10 03/28/17 14:30 03/29/17 08:05 Enalapril Maleate (Vasotec) 40 mg DAILY PO 03/29/17 09:00 03/29/17 07:46 Gabapentin (Neurontin) 600 mg HS PO 03/28/17 21:00 03/28/17 20:56 Hydrochlorothiazide (Microzide) 12.5 mg DAILY PO 03/29/17 09:00 03/29/17 07:46 Metoprolol Succinate (Toprol Xl) 100 mg DAILY PO 03/29/17 09:00 03/29/17 07:45 Miscellaneous Information ALL NURSING DEPARTME... UNSCH PRN .XX SEE LABEL COMMENTS 03/28/17 14:55 03/29/17 14:54 Albuterol Sulfate (Albuterol Neb) 2.5 mg Q2HR NEB PRN INH DYSPNEA 03/29/17 12:00 UNV Albuterol/ Ipratropium (Duoneb Neb) 1 ampule QID NEB NEB 03/29/17 12:00 UNV (Amelia Norris) Medical Decision Making MDM Remarks 56 year old male s/p L3-4 PLIF for adjacent level degenerative disease (Amelia Norris) Plan Plan Remarks cont pain control with DIRECTOR OF TRAINING pump, oral medications prn, cont bed rest today, HOB no greater than 20 degrees, keep craig in as patient remains in strict bed rest, SCDs and TEDs for dvt prophylaxis IS every hour, neb treatments transfer out of unit to 6N (Amelia Norris) Attending Statement The exam, history, and the medical decision-making described in the above note were completed with the assistance of the mid-level provider. I reviewed and agree with the findings presented. I attest that I had a [id number] encounter with the patient on the same day, and personally performed and documented my assessment and findings in the medical record. (Dewayne Figueroa MD) Amelia Norris Mar 29, 2017 08:47 Dewayne Figueroa MD Mar 31, 2017 21:38
[2017-03-29] MEDS: DOCUSATE SODIUM 100 MG CAP PO SCH ×2 (09:00→20:10)
--- NOTE | 2017-03-29 10:15 | PD.CONS ---
HPI Service [facility] Hospitalists Consult Requested By Dr. Figueroa Reason for Consult Medical management Primary Care Physician Non-Staff Diagnoses: (1) Spinal stenosis (2) COPD (chronic obstructive pulmonary disease) (3) Hypertension (4) Hyperlipidemia History of Present Illness The patient is a 56-year-old male currently admitted to [facility] following L3-L4 decompressive laminectomy. Hospitalist consult has been requested for medical management. Patient reports history of hypertension, hyperlipidemia, COPD. He continues to smoke. He reports pain in his back, but has no other complaints at this time. Denies chest pain or dyspnea. Review of Systems Constitutional: DENIES: Fever, Chills, Night Sweats Eyes: DENIES: Blurred vision, Vision loss Ears, nose, mouth, throat: DENIES: Hearing loss Respiratory: DENIES: Cough, Wheezing, Sputum production, Shortness of breath Cardiovascular: DENIES: Chest pain, Palpitations, Dyspnea on Exertion, Lower Extremity Edema Gastrointestinal: DENIES: Abdominal pain, Constipation, Diarrhea, Nausea, Vomiting Genitourinary: DENIES: Urinary frequency, Urinary incontinence, Urgency, Hematuria, Dysuria, Nocturia Musculoskeletal: COMPLAINS OF: Back pain, DENIES: Joint pain, Muscle aches Integumentary: DENIES: Pruritus, Rash Hematologic/lymphatic: DENIES: Bruising Neurologic: DENIES: Headache Past Family Social History Allergies: Coded Allergies: methotrexate (Unverified Allergy, Unknown, 03/28/17) Past Medical History Hypertension Hyperlipidemia Lumbar degenerative disc disease Psoriasis Past Surgical History Hand surgery Finger surgery Back surgery Reported Medications Cetirizine 10 mg daily Toprol-XL 100 mg daily Enalapril 40 mg daily Percocet 10/325 every 4 hours as needed Tramadol 50 mg daily at bedtime Gabapentin 600 mg daily at bedtime Paroxetine 20 mg daily at bedtime HCTZ 12.5 mg daily Pantoprazole 40 mg daily Humira Family History Diabetes Prostate cancer Social History Smokes one half pack per day. Has tried to quit in the past, but does not feel ready to quit at this time. Reports social alcohol use. Denies illicit drug use. Physical Exam Vital Signs Vital Signs Date Time Temp Pulse Resp B/P (MAP) Pulse Ox O2 Delivery O2 Flow Rate FiO2 03/29/17 08:00 97.9 84 15 126/68 (87) 98 03/29/17 08:00 84 03/29/17 07:44 98 Nasal Cannula 3.00 03/29/17 07:00 97 Nasal Cannula 2.00 03/29/17 06:00 84 03/29/17 06:00 18 03/29/17 04:02 15 03/29/17 04:00 84 03/29/17 04:00 97.9 81 15 104/55 (71) 98 03/29/17 03:48 16 03/29/17 03:10 18 03/29/17 02:00 80 03/29/17 00:00 84 03/29/17 00:00 98.0 84 15 120/59 (79) 98 03/28/17 22:00 82 03/28/17 20:00 97.9 78 15 147/72 (97) 97 03/28/17 20:00 98 Nasal Cannula 2.00 03/28/17 20:00 78 03/28/17 19:43 98 Nasal Cannula 3.00 03/28/17 18:11 97 Nasal Cannula 4.00 03/28/17 18:00 71 03/28/17 17:30 97.5 69 10 142/62 (88) 95 03/28/17 17:30 95 Nasal Cannula 2.00 03/28/17 17:30 69 03/28/17 17:18 16 03/28/17 17:00 76 16 138/71 (93) 97 Nasal Cannula 2 03/28/17 16:30 70 16 149/79 (102) 100 Nasal Cannula 2 03/28/17 16:00 74 16 148/83 (104) 100 Nasal Cannula 2 03/28/17 15:45 76 16 157/79 (105) 97 Nasal Cannula 2 03/28/17 15:30 82 16 136/74 (94) 98 Nasal Cannula 2 03/28/17 15:15 82 16 122/66 (84) 98 Nasal Cannula 3 03/28/17 15:00 78 16 105/57 (73) 100 Nasal Cannula 3 03/28/17 14:55 97.7 86 16 110/57 (74) 97 Nasal Cannula 3 Physical Exam GENERAL: Well-nourished, well-developed male in no acute distress. HEENT: Normocephalic, atraumatic. Pupils equal, round and reactive. Extraocular movements intact. No scleral icterus. No injection or drainage. Oropharynx is clear. Mucous membranes are moist. CARDIOVASCULAR: Regular rate and rhythm without murmurs, gallops, or rubs. RESPIRATORY: Mild scattered wheeze. Breathing is non-labored. GASTROINTESTINAL: Abdomen soft, non-tender, nondistended. EXTREMITIES: No lower extremity edema. No calf tenderness. PSYCH: Alert and oriented x 3. Laboratory Laboratory Tests Test 03/28/17 17:22 03/29/17 04:31 Nasal Screen MRSA (PCR) MRSA NOT DETECTED White Blood Count 7.9 Red Blood Count 3.32 Hemoglobin 11.0 Hematocrit 32.0 Mean Corpuscular Volume 96.5 Mean Corpuscular Hemoglobin 33.1 Mean Corpuscular Hemoglobin Concent 34.3 Red Cell Distribution Width 13.0 Platelet Count 214 Mean Platelet Volume 6.4 Neutrophils (%) (Auto) 69.5 Lymphocytes (%) (Auto) 23.9 Monocytes (%) (Auto) 6.1 Eosinophils (%) (Auto) 0.1 Basophils (%) (Auto) 0.4 Neutrophils # (Auto) 5.5 Lymphocytes # (Auto) 1.9 Monocytes # (Auto) 0.5 Eosinophils # (Auto) 0.0 Basophils # (Auto) 0.0 CBC Comment DIFF FINAL Differential Comment Blood Urea Nitrogen 12 Creatinine 0.75 Random Glucose 98 Total Protein 6.0 Calcium Level 7.4 Sodium Level 138 Potassium Level 3.8 Chloride Level 104 Carbon Dioxide Level 25.7 Anion Gap 8 Estimat Glomerular Filtration Rate 108 Protein Corrected Calcium 8.0 Result Diagram: 03/29/17 0431 03/29/17 0431 Imaging Last Impressions Lumbar Spine X-Ray 03/28/17 0000 Signed Impressions: Service Date/Time: Tuesday, March 28, 2017 09:41 - CONCLUSION: Intraoperative images. Clinton Robles MD Assessment and Plan Assessment and Plan 1. Lumbar degenerative disc disease: Status post L3-L4 decompressive laminectomy. Management per neurosurgery. Continue pain control. 2. Hypertension: Continue metoprolol, enalapril, HCTZ. 3. Reported history of hyperlipidemia: Not currently on cholesterol lowering medications. 4. COPD: Supplemental oxygen as needed. Bronchodilators. 5. Tobacco abuse: Counseled to quit smoking. 6. DVT prophylaxis: SCDs, TONNY dash. Avoid chemical prophylaxis at this time secondary to recent surgery. Ermias Mg MD Mar 29, 2017 10:15
[2017-03-29] MEDS ORDERED: RESP: ALBUTEROL 2.5 MG/3 ML NEB (PRN) INH (12:00)
[2017-03-29] MEDS: RESP: ALBUTEROL 2.5 MG/IPRATROPIUM 0.5 MG NEB (SCH) NEB ×3 (12:37→21:44)
[2017-03-29] MEDS: GABAPENTIN 300 MG CAP PO SCH (20:09)
[2017-03-29] MEDS: CHLORHEXIDINE GLUCONATE 4% SOLN 120 ML BTL TOP SCH (21:00)
[2017-03-30] VITALS (8 sets, daily range): BP systolic 111–142; BP diastolic 60–76; PULSE 75–89; RESP 17–19; TEMP 97.8–101; O2SAT 91–100
[2017-03-30] MEDS: SODIUM CHLOR 0.9% 1000 ML INJ 1,000 ML IV SCH ×2 (05:56→16:25)
[2017-03-30] MEDS: PCA - TOTAL MG DILAUDID DELIVERED PER SHIFT SCH ×3 (06:00→20:54)
[2017-03-30] MEDS: HYDROmorphone HCL PCA 6 MG/30 ML IV SCH ×2 (06:54)
[2017-03-30 07:58] LABS: AUTOMATED NEUTROPHIL # 6.7 TH/MM3 (1.8-7.7); BASOPHIL % 0.3 % (0.0-2.0); EOSINOPHIL # 0.1 TH/MM3 (0-0.4); EOSINOPHIL % 0.6 % (0.0-4.0); HEMATOCRIT 32.2 % (39.0-51.0); HEMOGLOBIN 11.1 GM/DL (13.0-17.0); LYMPHOCYTE # 1.7 TH/MM3 (1.0-4.8); MEAN CELL VOLUME 97.4 FL (80.0-100.0); MEAN CORPUSCULAR HEMOGLOBIN 33.7 PG (27.0-34.0); MEAN CORPUSCULAR HGB CONC 34.6 % (32.0-36.0); MEAN PLATELET VOLUME 6.8 FL (7.0-11.0); MONO % 8.1 % (0.0-8.0); MONOCYTE # 0.7 TH/MM3 (0-0.9); PLATELET COUNT 197 TH/MM3 (150-450); RED BLOOD COUNT 3.31 MIL/MM3 (4.50-5.90); RED CELL DISTRIBUTION WIDTH 12.9 % (11.6-17.2); WHITE BLOOD COUNT 9.2 TH/MM3 (4.0-11.0)
[2017-03-30] MEDS: RESP: ALBUTEROL 2.5 MG/IPRATROPIUM 0.5 MG NEB (SCH) NEB ×4 (08:00→19:36)
[2017-03-30] MEDS: INSULIN ASPART SUPPLEMENTAL SCALE SQ SCH ×4 (08:00→20:48)
[2017-03-30 08:14] LABS: BICARBONATE 25.8 MEQ/L (21.0-32.0); CALCIUM 7.8 MG/DL (8.5-10.1); CREATININE 0.6 MG/DL (0.60-1.30)
[2017-03-30] MEDS: ceFAZolin 2 GM PREMIX 50 ML IV SCH ×2 (08:57)
[2017-03-30] MEDS: HYDROCHLOROTHIAZIDE 12.5 MG CAP PO SCH (08:58)
[2017-03-30] MEDS: DOCUSATE SODIUM 100 MG CAP PO SCH ×2 (08:58→20:47)
[2017-03-30] MEDS: ENALAPRIL MALEATE 10 MG TAB PO SCH (08:58)
[2017-03-30] MEDS: PANTOPRAZOLE SOD 40 MG DELAYED RELEASE TAB PO SCH (08:58)
[2017-03-30] MEDS: SODIUM CHLORIDE 0.9% FLUSH 5 ML FLUSH IVF SCH ×2 (08:59→20:46)
[2017-03-30] MEDS: ACETAMINOPHEN/HYDROcodone 325 MG/10 MG TAB PO PRN ×4 (08:59→20:46)
[2017-03-30] MEDS: METOPROLOL SUCCINATE 50 MG EXTENDED RELEASE TAB PO SCH (09:00)
[2017-03-30] MEDS: CALCIUM CARBONATE 1.25 GM (CA 500 MG) TAB PO SCH ×2 (09:04→20:46)
--- NOTE | 2017-03-30 09:48 | HHI.PR ---
Subjective Remarks Complain back pain overnight. Does not use oxygen at home are C Pap. Complaining of mild headache. Objective Vitals Vital Signs Date Time Temp Pulse Resp B/P (MAP) Pulse Ox O2 Delivery O2 Flow Rate FiO2 03/30/17 08:00 100.4 89 18 128/60 (82) 91 03/30/17 06:54 17 03/30/17 06:00 17 03/30/17 04:00 99.9 81 17 142/72 (95) 96 03/30/17 01:23 Nasal Cannula 2.00 03/30/17 00:40 17 03/30/17 00:00 101.0 86 19 130/76 (94) 96 03/30/17 00:00 17 03/29/17 21:59 18 03/29/17 21:10 18 03/29/17 19:00 99.8 82 17 96/47 (63) 95 03/29/17 16:45 Nasal Cannula 3.00 03/29/17 14:00 80 03/29/17 12:00 98.3 72 12 102/58 (73) 99 03/29/17 12:00 72 03/29/17 10:00 68 I/O 03/29/17 03/29/17 03/29/17 03/30/17 03/30/17 03/30/17 07:00 15:00 23:00 07:00 15:00 23:00 Intake Total 1650 ml 120 ml 480 ml 1530 ml Output Total 2000 ml 1500 ml 800 ml 800 ml Balance -350 ml -1380 ml -320 ml 730 ml Intake Oral 600 ml 120 ml 480 ml 480 ml IV Total 1050 ml 1050 ml Output Urine Total 2000 ml 1500 ml 800 ml 800 ml # Bowel Movements 0 0 0 0 Result Diagram: 03/30/1735 03/30/17 0635 Objective Remarks GENERAL: This is a well-nourished, well-developed patient, in no apparent distress. CARDIOVASCULAR: Regular rate and rhythm RESPIRATORY: Clear to auscultation. Breath sounds equal bilaterally. No wheezes , rales, or rhonchi. GASTROINTESTINAL: Abdomen soft, non-tender, nondistended. Normal active bowel sounds MUSCULOSKELETAL: Extremities without clubbing, cyanosis, or edema. Bilateral SCDs NEURO: Alert & Oriented x4 to person, place, time, situation. Moves all ext x4 A/P Problem List: (1) Spinal stenosis ICD Code: M48.00 - Spinal stenosis, site unspecified Status: Chronic (2) COPD (chronic obstructive pulmonary disease) ICD Code: J44.9 - Chronic obstructive pulmonary disease, unspecified Status: Chronic (3) Hypertension ICD Code: I10 - Essential (primary) hypertension Status: Chronic (4) Hyperlipidemia ICD Code: E78.5 - Hyperlipidemia, unspecified Status: Chronic Assessment and Plan 1. Lumbar degenerative disc disease: Status post operative day #1 L3-L4 decompressive laminectomy. Management per neurosurgery. Continue pain control and physical therapy. 2. Hypertension, essential: Continue metoprolol, enalapril, HCTZ. 3. Reported history of hyperlipidemia: Not currently on cholesterol lowering medications. 4. COPD, chronic: Supplemental oxygen as needed. Bronchodilators. No signs acute exacerbation. 5. Tobacco abuse: Counseled to quit smoking. 6. DVT prophylaxis: SCDs, TONNY dash. Avoid chemical prophylaxis at this time secondary to recent surgery. 7. Mild hypocalcemia-supplement Discharge Planning Home when cleared by neurosurgery Problem Qualifiers (1) Hypertension: Qualified Codes: I10 - Essential (primary) hypertension (2) Hyperlipidemia: Qualified Codes: E78.5 - Hyperlipidemia, unspecified Meme Franklin MD Mar 30, 2017 09:48
--- NOTE | 2017-03-30 11:19 | RADRPT ---
EXAM DATE/TIME: 03/30/2017 11:02 [place] COMPARISON: No previous studies available for comparison. INDICATIONS : Fever MEDICAL HISTORY : Chronic obstructive pulmonary disease. Hypertension Arthritis. Smoker SURGICAL HISTORY : L4-S1 fusion ENCOUNTER: Initial ACUITY: 3 days PAIN SCORE: 0/10 LOCATION: chest FINDINGS: PA and lateral views of the chest demonstrate the lungs to be symmetrically aerated without evidence of mass, infiltrate or effusion. There appears to be a small granuloma in the right middle lobe. The cardiomediastinal contours are unremarkable. Osseous structures are intact. CONCLUSION: No acute disease. Chris Jean MD on March 30, 2017 at 11:17 Board Certified Radiologist. This report was verified electronically.
[2017-03-30] MEDS: ENOXAPARIN SODIUM 40 MG/0.4 ML SYRINGE SQ SCH (12:07)
[2017-03-30 12:30] LABS: BILIRUBIN, URINE NEG (NEG); BLOOD, URINE SMALL (NEG); GLUCOSE,URINE NEG (NEG); HYALINE CAST, URINE 1 /lpf (RARE); KETONE, URINE NEG (NEG); MUCUS URINE FEW /lpf (OCC); NITRITE,URINE NEG (NEG); PH, URINE 5.5 (5.0-8.5); URINE COLOR YELLOW (YELLW/STRAW); URINE LEUKOCYTE ESTERASE NEG (NEG)
--- NOTE | 2017-03-30 14:55 | HHI.NSPN ---
Note Status Status: Progress Note Interval History Interval History Lumbar degenerative disk disease adjacent to a prior fusion Postoperative Diagnosis: Lumbar degenerative disk disease adjacent to a prior fusion Mr. Maher is s/p L3-L4 decompressive laminectomy, interbody arthrodesis using Peek cage filled with autologous iliac crest bone graft, L3-L4 posterolateral fusion using autologous bone graft, with demineralized bone matrix, L3-L4 instrumental fixation using transpedicular screws and rods on 03/28/17 for severe degenerative severe adjacent level degeneration at L3-L4. 03/29: c/o of moderate surgical pain, on Dilauded PREPARED FOODS TEAM LEADER and oral lortab. 03/30: pt seen this morning during rounds, had low grade fevers this morning which now resolved. had CXR and UA ordered and negative. pt requesting to go home. Labs, Micro, & Vital Signs Results Date Time Temp Pulse Resp B/P (MAP) Pulse Ox O2 Delivery O2 Flow Rate FiO2 03/30/17 14:01 93 Room Air 03/30/17 12:58 95 Room Air 03/30/17 12:00 97.8 83 18 125/60 (81) 95 03/30/17 10:23 94 21 03/30/17 10:15 18 03/30/17 09:00 98 Nasal Cannula 2.00 03/30/17 08:00 100.4 89 18 128/60 (82) 91 03/30/17 06:54 17 03/30/17 06:00 17 03/30/17 04:00 99.9 81 17 142/72 (95) 96 03/30/17 01:23 Nasal Cannula 2.00 03/30/17 00:40 17 03/30/17 00:00 101.0 86 19 130/76 (94) 96 03/30/17 00:00 17 03/29/17 21:59 18 03/29/17 21:10 18 03/29/17 19:00 99.8 82 17 96/47 (63) 95 03/29/17 16:45 Nasal Cannula 3.00 Constitutional Vital Signs Date Time Temp Pulse Resp B/P (MAP) Pulse Ox O2 Delivery O2 Flow Rate FiO2 03/30/17 14:01 93 Room Air 03/30/17 12:58 95 Room Air 03/30/17 12:00 97.8 83 18 125/60 (81) 95 03/30/17 10:23 94 21 03/30/17 10:15 18 03/30/17 09:00 98 Nasal Cannula 2.00 03/30/17 08:00 100.4 89 18 128/60 (82) 91 03/30/17 06:54 17 03/30/17 06:00 17 03/30/17 04:00 99.9 81 17 142/72 (95) 96 03/30/17 01:23 Nasal Cannula 2.00 03/30/17 00:40 17 03/30/17 00:00 101.0 86 19 130/76 (94) 96 03/30/17 00:00 17 03/29/17 21:59 18 03/29/17 21:10 18 03/29/17 19:00 99.8 82 17 96/47 (63) 95 03/29/17 16:45 Nasal Cannula 3.00 Review of Systems Cardiovascular: DENIES: Chest pain Gastrointestinal: DENIES: Nausea, Vomiting Musculoskeletal: COMPLAINS OF: Back pain Physical Exam Mr. Maher is alert, awake and oriented to time, place and person. Speech is fluent. Cranial nerve examination: pupils equal, round and reactive to light. Extra- ocular movements are intact. Facial motor are normal and symmetrical. Neck is soft and supple Muscle strength: moving all major muscle groups of upper and lower extremities, exam limited due to complaint of surgical pain Sensory examination is intact to light touch lower extremities. There is a bilateral plantar flexion response. Medications Current Medications Current Medications Medications (Trade) Dose Ordered Sig/Emmanuel Route PRN Reason Start Time Stop Time Status Last Admin Dose Admin Vancomycin HCl 1000 mg/Sodium Chloride 250 ml @ 250 mls/hr FISHERIES ENFORCEMENT OFFICER IV 03/28/17 07:00 03/31/17 06:59 03/28/17 11:22 Lactated Ringer's 1,000 ml @ 30 mls/hr Q24H PRN IV SEE LABEL COMMENTS 03/28/17 07:00 03/31/17 06:59 Metoprolol Tartrate (Lopressor) 25 mg FISHERIES ENFORCEMENT OFFICER PRN PO SEE LABEL COMMENTS 03/28/17 07:00 03/31/17 06:59 Povidone Iodine (Betadine 5% Antisepsis Kit) 1 applic FISHERIES ENFORCEMENT OFFICER PRN EACH NARE SEE LABEL COMMENTS 03/28/17 07:00 03/31/17 06:59 Chlorhexidine Gluconate (Chlorhexidine 2% Cloth) 3 pack FISHERIES ENFORCEMENT OFFICER PRN TOPICAL SEE LABEL COMMENTS 03/28/17 07:00 03/31/17 06:59 Insulin Human Regular (NovoLIN R INJ) See Protocol Table ... FISHERIES ENFORCEMENT OFFICER PRN SQ SEE PROTOCOL TABLE 03/28/17 07:00 03/31/17 06:59 Sodium Chloride 1,000 ml @ 100 mls/hr Q10H IV 03/28/17 14:25 03/30/17 05:56 IV Flush (NS Flush) 2 ml UNSCH PRN IVF FLUSH AFTER USING IV ACCESS 03/28/17 14:30 IV Flush (NS Flush) 2 ml BID IVF 03/28/17 21:00 03/29/17 20:10 Bisacodyl (Dulcolax Supp) 10 mg DAILY PRN RECTAL CONSTIPATION 03/28/17 14:30 Docusate Sodium (Colace) 100 mg BID PO 03/28/17 21:00 03/30/17 08:58 Pantoprazole Sodium (Protonix) 40 mg DAILY PO 03/29/17 09:00 03/30/17 08:58 Ondansetron HCl (Zofran Inj) 4 mg Q6H PRN IV PUSH NAUSEA OR VOMITING 03/28/17 14:30 Cyclobenzaprine HCl (Flexeril) 10 mg Q8H PRN PO MUSCLE SPASM 03/28/17 14:30 03/28/17 21:09 Clonidine (Catapres) 0.1 mg Q6H PRN PO/NG SYS BP GREATER THAN 170 MMHG 03/28/17 14:30 Acetaminophen (Tylenol) 650 mg Q4H PRN PO TEMPERATURE > 101.5 F 03/28/17 14:30 Menthol ([place] Simón) 1 lozenge UNSCH PRN BUCCAL SORE THROAT 03/28/17 14:30 Chlorhexidine Gluconate (Hibiclens 4% Top Soln) 1 applic HS TOP 03/28/17 21:00 03/30/17 21:01 Dextrose (D50w (Syr) Inj) 50 ml UNSCH PRN IV PUSH HYPOGLYCEMIA-SEE COMMENTS 03/28/17 14:30 Glucagon (Glucagon Inj) 1 mg UNSCH PRN OTHER HYPOGLYCEMIA-SEE COMMENTS 03/28/17 14:30 Insulin Aspart (NovoLOG SUPPLEMENTAL SCALE) 1 ACHS SLIDING SCALE SQ 03/28/17 17:00 03/28/17 16:20 Naloxone HCl (Narcan Inj) 0.4 mg UNSCH PRN IV PUSH RESPIRATORY RATE LESS THAN 10 03/28/17 14:30 Diphenhydramine HCl (Benadryl Inj) 25 mg Q6H PRN IV PUSH ITCHING 03/28/17 14:30 PREPARED [employer]S TEAM LEADER Dosage Infused (Pha) 1 Q8HR .XX 03/28/17 14:30 03/30/17 10:15 Acetaminophen/ Hydrocodone Bitart ([place] 10-325 Mg) 1 tab Q4H PRN PO PAIN SCALE 1 TO 5 03/28/17 14:30 Acetaminophen/ Hydrocodone Bitart ([place] 10-325 Mg) 2 tab Q4H PRN PO PAIN SCALE 6 TO 10 03/28/17 14:30 03/30/17 13:00 Enalapril Maleate (Vasotec) 40 mg DAILY PO 03/29/17 09:00 03/30/17 08:58 Gabapentin (Neurontin) 600 mg HS PO 03/28/17 21:00 03/29/17 20:09 Hydrochlorothiazide (Microzide) 12.5 mg DAILY PO 03/29/17 09:00 03/30/17 08:58 Metoprolol Succinate (Toprol Xl) 100 mg DAILY PO 03/29/17 09:00 03/30/17 09:00 Albuterol Sulfate (Albuterol Neb) 2.5 mg Q2HR NEB PRN INH DYSPNEA 03/29/17 12:00 Albuterol/ Ipratropium (Duoneb Neb) 1 ampule QID NEB NEB 03/29/17 12:00 03/30/17 10:17 Cefazolin Sodium/ Dextrose 50 ml @ 100 mls/hr Q8H IV 03/29/17 16:00 03/30/17 15:59 03/30/17 08:57 Calcium Carbonate (Oscal) 500 mg Q12HR PO 03/30/17 09:00 03/30/17 09:04 Enoxaparin Sodium (Lovenox Inj) 40 mg Q24H SQ 03/30/17 11:00 03/30/17 12:07 Medical Decision Making MDM Remarks 56 year old male s/p L3-4 PLIF for adjacent level degenerative disease 03/28/17 Plan Plan Remarks dc [employer] TEAM LEADER, cont oral medications prn, cont bed rest today, HOB increased today to up to 30 degrees, keep craig today in as patient still remains in strict bed rest, SCDs and TEDs for dvt prophylaxis cont IS every hour, neb treatments UA and CXR negative, fever now resolved, cont post-op Ancef, start sq lovenox for dvt prophylaxis, cont SCDs and TEDs for dvt proph Amelia Norris Mar 30, 2017 14:55
--- NOTE | 2017-03-30 14:55 | HHI.NSPN ---
Note Status Status: Progress Note Interval History Interval History Lumbar degenerative disk disease adjacent to a prior fusion Postoperative Diagnosis: Lumbar degenerative disk disease adjacent to a prior fusion Mr. Maher is s/p L3-L4 decompressive laminectomy, interbody arthrodesis using Peek cage filled with autologous iliac crest bone graft, L3-L4 posterolateral fusion using autologous bone graft, with demineralized bone matrix, L3-L4 instrumental fixation using transpedicular screws and rods on 03/28/17 for severe degenerative severe adjacent level degeneration at L3-L4. 03/29: c/o of moderate surgical pain, on Dilauded STOCKROOM KEEPER and oral lortab. 03/30: pt seen this morning during rounds, had low grade fevers this morning which now resolved. had CXR and UA ordered and negative. pt requesting to go home. Labs, Micro, & Vital Signs Results Date Time Temp Pulse Resp B/P (MAP) Pulse Ox O2 Delivery O2 Flow Rate FiO2 03/30/17 14:01 93 Room Air 03/30/17 12:58 95 Room Air 03/30/17 12:00 97.8 83 18 125/60 (81) 95 03/30/17 10:23 94 21 03/30/17 10:15 18 03/30/17 09:00 98 Nasal Cannula 2.00 03/30/17 08:00 100.4 89 18 128/60 (82) 91 03/30/17 06:54 17 03/30/17 06:00 17 03/30/17 04:00 99.9 81 17 142/72 (95) 96 03/30/17 01:23 Nasal Cannula 2.00 03/30/17 00:40 17 03/30/17 00:00 101.0 86 19 130/76 (94) 96 03/30/17 00:00 17 03/29/17 21:59 18 03/29/17 21:10 18 03/29/17 19:00 99.8 82 17 96/47 (63) 95 03/29/17 16:45 Nasal Cannula 3.00 Constitutional Vital Signs Date Time Temp Pulse Resp B/P (MAP) Pulse Ox O2 Delivery O2 Flow Rate FiO2 03/30/17 14:01 93 Room Air 03/30/17 12:58 95 Room Air 03/30/17 12:00 97.8 83 18 125/60 (81) 95 03/30/17 10:23 94 21 03/30/17 10:15 18 03/30/17 09:00 98 Nasal Cannula 2.00 03/30/17 08:00 100.4 89 18 128/60 (82) 91 03/30/17 06:54 17 03/30/17 06:00 17 03/30/17 04:00 99.9 81 17 142/72 (95) 96 03/30/17 01:23 Nasal Cannula 2.00 03/30/17 00:40 17 03/30/17 00:00 101.0 86 19 130/76 (94) 96 03/30/17 00:00 17 03/29/17 21:59 18 03/29/17 21:10 18 03/29/17 19:00 99.8 82 17 96/47 (63) 95 03/29/17 16:45 Nasal Cannula 3.00 Review of Systems Cardiovascular: DENIES: Chest pain Gastrointestinal: DENIES: Nausea, Vomiting Musculoskeletal: COMPLAINS OF: Back pain Physical Exam Mr. Maher is alert, awake and oriented to time, place and person. Speech is fluent. Cranial nerve examination: pupils equal, round and reactive to light. Extra- ocular movements are intact. Facial motor are normal and symmetrical. Neck is soft and supple Muscle strength: moving all major muscle groups of upper and lower extremities, exam limited due to complaint of surgical pain Sensory examination is intact to light touch lower extremities. There is a bilateral plantar flexion response. Medications Current Medications Current Medications Medications (Trade) Dose Ordered Sig/Emmanuel Route PRN Reason Start Time Stop Time Status Last Admin Dose Admin Vancomycin HCl 1000 mg/Sodium Chloride 250 ml @ 250 mls/hr SUPERVISOR TOWER IV 03/28/17 07:00 03/31/17 06:59 03/28/17 11:22 Lactated Ringer's 1,000 ml @ 30 mls/hr Q24H PRN IV SEE LABEL COMMENTS 03/28/17 07:00 03/31/17 06:59 Metoprolol Tartrate (Lopressor) 25 mg SUPERVISOR TOWER PRN PO SEE LABEL COMMENTS 03/28/17 07:00 03/31/17 06:59 Povidone Iodine (Betadine 5% Antisepsis Kit) 1 applic SUPERVISOR TOWER PRN EACH NARE SEE LABEL COMMENTS 03/28/17 07:00 03/31/17 06:59 Chlorhexidine Gluconate (Chlorhexidine 2% Cloth) 3 pack SUPERVISOR TOWER PRN TOPICAL SEE LABEL COMMENTS 03/28/17 07:00 03/31/17 06:59 Insulin Human Regular (NovoLIN R INJ) See Protocol Table ... SUPERVISOR TOWER PRN SQ SEE PROTOCOL TABLE 03/28/17 07:00 03/31/17 06:59 Sodium Chloride 1,000 ml @ 100 mls/hr Q10H IV 03/28/17 14:25 03/30/17 05:56 IV Flush (NS Flush) 2 ml UNSCH PRN IVF FLUSH AFTER USING IV ACCESS 03/28/17 14:30 IV Flush (NS Flush) 2 ml BID IVF 03/28/17 21:00 03/29/17 20:10 Bisacodyl (Dulcolax Supp) 10 mg DAILY PRN RECTAL CONSTIPATION 03/28/17 14:30 Docusate Sodium (Colace) 100 mg BID PO 03/28/17 21:00 03/30/17 08:58 Pantoprazole Sodium (Protonix) 40 mg DAILY PO 03/29/17 09:00 03/30/17 08:58 Ondansetron HCl (Zofran Inj) 4 mg Q6H PRN IV PUSH NAUSEA OR VOMITING 03/28/17 14:30 Cyclobenzaprine HCl (Flexeril) 10 mg Q8H PRN PO MUSCLE SPASM 03/28/17 14:30 03/28/17 21:09 Clonidine (Catapres) 0.1 mg Q6H PRN PO/NG SYS BP GREATER THAN 170 MMHG 03/28/17 14:30 Acetaminophen (Tylenol) 650 mg Q4H PRN PO TEMPERATURE > 101.5 F 03/28/17 14:30 Menthol ([place] Simón) 1 lozenge UNSCH PRN BUCCAL SORE THROAT 03/28/17 14:30 Chlorhexidine Gluconate (Hibiclens 4% Top Soln) 1 applic HS TOP 03/28/17 21:00 03/30/17 21:01 Dextrose (D50w (Syr) Inj) 50 ml UNSCH PRN IV PUSH HYPOGLYCEMIA-SEE COMMENTS 03/28/17 14:30 Glucagon (Glucagon Inj) 1 mg UNSCH PRN OTHER HYPOGLYCEMIA-SEE COMMENTS 03/28/17 14:30 Insulin Aspart (NovoLOG SUPPLEMENTAL SCALE) 1 ACHS SLIDING SCALE SQ 03/28/17 17:00 03/28/17 16:20 Naloxone HCl (Narcan Inj) 0.4 mg UNSCH PRN IV PUSH RESPIRATORY RATE LESS THAN 10 03/28/17 14:30 Diphenhydramine HCl (Benadryl Inj) 25 mg Q6H PRN IV PUSH ITCHING 03/28/17 14:30 STOCKROOM KEEPER Dosage Infused (Pha) 1 Q8HR .XX 03/28/17 14:30 03/30/17 10:15 Acetaminophen/ Hydrocodone Bitart ([place] 10-325 Mg) 1 tab Q4H PRN PO PAIN SCALE 1 TO 5 03/28/17 14:30 Acetaminophen/ Hydrocodone Bitart ([place] 10-325 Mg) 2 tab Q4H PRN PO PAIN SCALE 6 TO 10 03/28/17 14:30 03/30/17 13:00 Enalapril Maleate (Vasotec) 40 mg DAILY PO 03/29/17 09:00 03/30/17 08:58 Gabapentin (Neurontin) 600 mg HS PO 03/28/17 21:00 03/29/17 20:09 Hydrochlorothiazide (Microzide) 12.5 mg DAILY PO 03/29/17 09:00 03/30/17 08:58 Metoprolol Succinate (Toprol Xl) 100 mg DAILY PO 03/29/17 09:00 03/30/17 09:00 Albuterol Sulfate (Albuterol Neb) 2.5 mg Q2HR NEB PRN INH DYSPNEA 03/29/17 12:00 Albuterol/ Ipratropium (Duoneb Neb) 1 ampule QID NEB NEB 03/29/17 12:00 03/30/17 10:17 Cefazolin Sodium/ Dextrose 50 ml @ 100 mls/hr Q8H IV 03/29/17 16:00 03/30/17 15:59 03/30/17 08:57 Calcium Carbonate (Oscal) 500 mg Q12HR PO 03/30/17 09:00 03/30/17 09:04 Enoxaparin Sodium (Lovenox Inj) 40 mg Q24H SQ 03/30/17 11:00 03/30/17 12:07 Medical Decision Making MDM Remarks 56 year old male s/p L3-4 PLIF for adjacent level degenerative disease 03/28/17 Plan Plan Remarks dc STOCKROOM KEEPER, cont oral medications prn, cont bed rest today, HOB increased today to up to 30 degrees, keep craig today in as patient still remains in strict bed rest, SCDs and TEDs for dvt prophylaxis cont IS every hour, neb treatments UA and CXR negative, fever now resolved, cont post-op Ancef, start sq lovenox for dvt prophylaxis, cont SCDs and TEDs for dvt proph Amelia Norris Mar 30, 2017 14:55
--- NOTE | 2017-03-30 14:55 | HHI.NSPN ---
Note Status Status: Progress Note Interval History Interval History Lumbar degenerative disk disease adjacent to a prior fusion Postoperative Diagnosis: Lumbar degenerative disk disease adjacent to a prior fusion Mr. Maher is s/p L3-L4 decompressive laminectomy, interbody arthrodesis using Peek cage filled with autologous iliac crest bone graft, L3-L4 posterolateral fusion using autologous bone graft, with demineralized bone matrix, L3-L4 instrumental fixation using transpedicular screws and rods on 03/28/17 for severe degenerative severe adjacent level degeneration at L3-L4. 03/29: c/o of moderate surgical pain, on Dilauded MICROSOFT OFFICE INSTRUCTOR and oral lortab. 03/30: pt seen this morning during rounds, had low grade fevers this morning which now resolved. had CXR and UA ordered and negative. pt requesting to go home. Labs, Micro, & Vital Signs Results Date Time Temp Pulse Resp B/P (MAP) Pulse Ox O2 Delivery O2 Flow Rate FiO2 03/30/17 14:01 93 Room Air 03/30/17 12:58 95 Room Air 03/30/17 12:00 97.8 83 18 125/60 (81) 95 03/30/17 10:23 94 21 03/30/17 10:15 18 03/30/17 09:00 98 Nasal Cannula 2.00 03/30/17 08:00 100.4 89 18 128/60 (82) 91 03/30/17 06:54 17 03/30/17 06:00 17 03/30/17 04:00 99.9 81 17 142/72 (95) 96 03/30/17 01:23 Nasal Cannula 2.00 03/30/17 00:40 17 03/30/17 00:00 101.0 86 19 130/76 (94) 96 03/30/17 00:00 17 03/29/17 21:59 18 03/29/17 21:10 18 03/29/17 19:00 99.8 82 17 96/47 (63) 95 03/29/17 16:45 Nasal Cannula 3.00 Constitutional Vital Signs Date Time Temp Pulse Resp B/P (MAP) Pulse Ox O2 Delivery O2 Flow Rate FiO2 03/30/17 14:01 93 Room Air 03/30/17 12:58 95 Room Air 03/30/17 12:00 97.8 83 18 125/60 (81) 95 03/30/17 10:23 94 21 03/30/17 10:15 18 03/30/17 09:00 98 Nasal Cannula 2.00 03/30/17 08:00 100.4 89 18 128/60 (82) 91 03/30/17 06:54 17 03/30/17 06:00 17 03/30/17 04:00 99.9 81 17 142/72 (95) 96 03/30/17 01:23 Nasal Cannula 2.00 03/30/17 00:40 17 03/30/17 00:00 101.0 86 19 130/76 (94) 96 03/30/17 00:00 17 03/29/17 21:59 18 03/29/17 21:10 18 03/29/17 19:00 99.8 82 17 96/47 (63) 95 03/29/17 16:45 Nasal Cannula 3.00 Review of Systems Cardiovascular: DENIES: Chest pain Gastrointestinal: DENIES: Nausea, Vomiting Musculoskeletal: COMPLAINS OF: Back pain Physical Exam Mr. Maher is alert, awake and oriented to time, place and person. Speech is fluent. Cranial nerve examination: pupils equal, round and reactive to light. Extra- ocular movements are intact. Facial motor are normal and symmetrical. Neck is soft and supple Muscle strength: moving all major muscle groups of upper and lower extremities, exam limited due to complaint of surgical pain Sensory examination is intact to light touch lower extremities. There is a bilateral plantar flexion response. Medications Current Medications Current Medications Medications (Trade) Dose Ordered Sig/Emmanuel Route PRN Reason Start Time Stop Time Status Last Admin Dose Admin Vancomycin HCl 1000 mg/Sodium Chloride 250 ml @ 250 mls/hr FIBER DESIGNER IV 03/28/17 07:00 03/31/17 06:59 03/28/17 11:22 Lactated Ringer's 1,000 ml @ 30 mls/hr Q24H PRN IV SEE LABEL COMMENTS 03/28/17 07:00 03/31/17 06:59 Metoprolol Tartrate (Lopressor) 25 mg FIBER DESIGNER PRN PO SEE LABEL COMMENTS 03/28/17 07:00 03/31/17 06:59 Povidone Iodine (Betadine 5% Antisepsis Kit) 1 applic FIBER DESIGNER PRN EACH NARE SEE LABEL COMMENTS 03/28/17 07:00 03/31/17 06:59 Chlorhexidine Gluconate (Chlorhexidine 2% Cloth) 3 pack FIBER DESIGNER PRN TOPICAL SEE LABEL COMMENTS 03/28/17 07:00 03/31/17 06:59 Insulin Human Regular (NovoLIN R INJ) See Protocol Table ... FIBER DESIGNER PRN SQ SEE PROTOCOL TABLE 03/28/17 07:00 03/31/17 06:59 Sodium Chloride 1,000 ml @ 100 mls/hr Q10H IV 03/28/17 14:25 03/30/17 05:56 IV Flush (NS Flush) 2 ml UNSCH PRN IVF FLUSH AFTER USING IV ACCESS 03/28/17 14:30 IV Flush (NS Flush) 2 ml BID IVF 03/28/17 21:00 03/29/17 20:10 Bisacodyl (Dulcolax Supp) 10 mg DAILY PRN RECTAL CONSTIPATION 03/28/17 14:30 Docusate Sodium (Colace) 100 mg BID PO 03/28/17 21:00 03/30/17 08:58 Pantoprazole Sodium (Protonix) 40 mg DAILY PO 03/29/17 09:00 03/30/17 08:58 Ondansetron HCl (Zofran Inj) 4 mg Q6H PRN IV PUSH NAUSEA OR VOMITING 03/28/17 14:30 Cyclobenzaprine HCl (Flexeril) 10 mg Q8H PRN PO MUSCLE SPASM 03/28/17 14:30 03/28/17 21:09 Clonidine (Catapres) 0.1 mg Q6H PRN PO/NG SYS BP GREATER THAN 170 MMHG 03/28/17 14:30 Acetaminophen (Tylenol) 650 mg Q4H PRN PO TEMPERATURE > 101.5 F 03/28/17 14:30 Menthol ([place] Simón) 1 lozenge UNSCH PRN BUCCAL SORE THROAT 03/28/17 14:30 Chlorhexidine Gluconate (Hibiclens 4% Top Soln) 1 applic HS TOP 03/28/17 21:00 03/30/17 21:01 Dextrose (D50w (Syr) Inj) 50 ml UNSCH PRN IV PUSH HYPOGLYCEMIA-SEE COMMENTS 03/28/17 14:30 Glucagon (Glucagon Inj) 1 mg UNSCH PRN OTHER HYPOGLYCEMIA-SEE COMMENTS 03/28/17 14:30 Insulin Aspart (NovoLOG SUPPLEMENTAL SCALE) 1 ACHS SLIDING SCALE SQ 03/28/17 17:00 03/28/17 16:20 Naloxone HCl (Narcan Inj) 0.4 mg UNSCH PRN IV PUSH RESPIRATORY RATE LESS THAN 10 03/28/17 14:30 Diphenhydramine HCl (Benadryl Inj) 25 mg Q6H PRN IV PUSH ITCHING 03/28/17 14:30 MICROSOFT OFFICE INSTRUCTOR Dosage Infused (Pha) 1 Q8HR .XX 03/28/17 14:30 03/30/17 10:15 Acetaminophen/ Hydrocodone Bitart ([place] 10-325 Mg) 1 tab Q4H PRN PO PAIN SCALE 1 TO 5 03/28/17 14:30 Acetaminophen/ Hydrocodone Bitart ([place] 10-325 Mg) 2 tab Q4H PRN PO PAIN SCALE 6 TO 10 03/28/17 14:30 03/30/17 13:00 Enalapril Maleate (Vasotec) 40 mg DAILY PO 03/29/17 09:00 03/30/17 08:58 Gabapentin (Neurontin) 600 mg HS PO 03/28/17 21:00 03/29/17 20:09 Hydrochlorothiazide (Microzide) 12.5 mg DAILY PO 03/29/17 09:00 03/30/17 08:58 Metoprolol Succinate (Toprol Xl) 100 mg DAILY PO 03/29/17 09:00 03/30/17 09:00 Albuterol Sulfate (Albuterol Neb) 2.5 mg Q2HR NEB PRN INH DYSPNEA 03/29/17 12:00 Albuterol/ Ipratropium (Duoneb Neb) 1 ampule QID NEB NEB 03/29/17 12:00 03/30/17 10:17 Cefazolin Sodium/ Dextrose 50 ml @ 100 mls/hr Q8H IV 03/29/17 16:00 03/30/17 15:59 03/30/17 08:57 Calcium Carbonate (Oscal) 500 mg Q12HR PO 03/30/17 09:00 03/30/17 09:04 Enoxaparin Sodium (Lovenox Inj) 40 mg Q24H SQ 03/30/17 11:00 03/30/17 12:07 Medical Decision Making MDM Remarks 56 year old male s/p L3-4 PLIF for adjacent level degenerative disease 03/28/17 Plan Plan Remarks dc [employer], cont oral medications prn, cont bed rest today, HOB increased today to up to 30 degrees, keep craig today in as patient still remains in strict bed rest, SCDs and TEDs for dvt prophylaxis cont IS every hour, neb treatments UA and CXR negative, fever now resolved, cont post-op Ancef, start sq lovenox for dvt prophylaxis, cont SCDs and TEDs for dvt proph Amelia Norris Mar 30, 2017 14:55
[2017-03-30] MEDS: CYCLOBENZAPRINE HCL 10 MG TAB PO PRN (16:22)
[2017-03-30] MEDS ORDERED: ZOLPIDEM TARTRATE 5 MG TAB PO PRN (16:45)
[2017-03-30] MEDS: GABAPENTIN 300 MG CAP PO SCH (20:46)
[2017-03-30] MEDS: CHLORHEXIDINE GLUCONATE 4% SOLN 120 ML BTL TOP SCH (20:53)
[2017-03-31] MEDS: ACETAMINOPHEN/HYDROcodone 325 MG/10 MG TAB PO PRN ×3 (02:50→11:25)
[2017-03-31] MEDS: PCA - TOTAL MG DILAUDID DELIVERED PER SHIFT SCH (03:11)
[2017-03-31] MEDS: SODIUM CHLOR 0.9% 1000 ML INJ 1,000 ML IV SCH ×2 (05:39→12:25)
[2017-03-31] MEDS: ENALAPRIL MALEATE 10 MG TAB PO SCH (07:52)
[2017-03-31] MEDS: HYDROCHLOROTHIAZIDE 12.5 MG CAP PO SCH (07:53)
[2017-03-31] MEDS: METOPROLOL SUCCINATE 50 MG EXTENDED RELEASE TAB PO SCH (07:53)
[2017-03-31] MEDS: CALCIUM CARBONATE 1.25 GM (CA 500 MG) TAB PO SCH (07:53)
[2017-03-31] MEDS: CYCLOBENZAPRINE HCL 10 MG TAB PO PRN (07:53)
[2017-03-31] MEDS: PANTOPRAZOLE SOD 40 MG DELAYED RELEASE TAB PO SCH (07:53)
[2017-03-31] MEDS: DOCUSATE SODIUM 100 MG CAP PO SCH (07:57)
[2017-03-31] MEDS: SODIUM CHLORIDE 0.9% FLUSH 5 ML FLUSH IVF SCH (07:57)
[2017-03-31 08:00] VITALS: BP 141/66; PULSE 63; RESP 18; TEMP 97.2; O2SAT 97
[2017-03-31] MEDS: INSULIN ASPART SUPPLEMENTAL SCALE SQ SCH ×2 (08:00→12:00)
[2017-03-31] MEDS: RESP: ALBUTEROL 2.5 MG/IPRATROPIUM 0.5 MG NEB (SCH) NEB ×2 (08:14→11:35)
[2017-03-31 08:15] VITALS: O2SAT 97
[2017-03-31] MEDS ORDERED: GABA300C5 PO ×2 (09:19→09:21)
[2017-03-31] MEDS ORDERED: HYDR-3535 PO (09:19)
[2017-03-31] MEDS: ENOXAPARIN SODIUM 40 MG/0.4 ML SYRINGE SQ SCH (11:26)
[2017-03-31 12:00] VITALS: BP 161/78; PULSE 61; RESP 18; TEMP 96.9; O2SAT 99
[2017-03-31] MEDS ORDERED: COMMODE 3-IN-11 MIS (12:13)
[2017-03-31] MEDS ORDERED: GETGO ROLLING W1 MI1 (12:13)
--- NOTE | 2017-03-31 12:22 | HHI.DCPOC ---
Discharge Care Plan Diagnosis: (1) S/P lumbar spinal fusion Goals to Promote Your Health * To prevent worsening of your condition and complications * To maintain your health at the optimal level Directions to Meet Your Goals Take your medications as prescribed Follow your dietary instruction Follow activity as directed Keep your appointments as scheduled Take your immunizations and boosters as scheduled If your symptoms worsen call your PCP, if no PCP go to Urgent Care Center or Emergency Room Smoking is Dangerous to Your Health. Avoid second hand smoke Call the 24-hour hour crisis hotline for domestic abuse at Amelia Norris Mar 31, 2017 12:22
--- NOTE | 2017-03-31 12:22 | HHI.DCPOC ---
Discharge Care Plan Diagnosis: (1) S/P lumbar spinal fusion Goals to Promote Your Health * To prevent worsening of your condition and complications * To maintain your health at the optimal level Directions to Meet Your Goals Take your medications as prescribed Follow your dietary instruction Follow activity as directed Keep your appointments as scheduled Take your immunizations and boosters as scheduled If your symptoms worsen call your PCP, if no PCP go to Urgent Care Center or Emergency Room Smoking is Dangerous to Your Health. Avoid second hand smoke Call the 24-hour hour crisis hotline for domestic abuse at Amelia Norris Mar 31, 2017 12:22
--- NOTE | 2017-03-31 12:22 | HHI.DCPOC ---
Discharge Care Plan Diagnosis: (1) S/P lumbar spinal fusion Goals to Promote Your Health * To prevent worsening of your condition and complications * To maintain your health at the optimal level Directions to Meet Your Goals Take your medications as prescribed Follow your dietary instruction Follow activity as directed Keep your appointments as scheduled Take your immunizations and boosters as scheduled If your symptoms worsen call your PCP, if no PCP go to Urgent Care Center or Emergency Room Smoking is Dangerous to Your Health. Avoid second hand smoke Call the 24-hour hour crisis hotline for domestic abuse at Amelia Norris Mar 31, 2017 12:22
--- NOTE | 2017-03-31 12:24 | HHI.DS ---
Discharge Summary Admission Date Mar 28, 2017 at 06:25 Discharge Date: Mar 31, 2017 Admitting Diagnosis s/p lumbar fusion (1) Spinal stenosis ICD Code: M48.00 - Spinal stenosis, site unspecified Status: Chronic (2) COPD (chronic obstructive pulmonary disease) ICD Code: J44.9 - Chronic obstructive pulmonary disease, unspecified Status: Chronic (3) Hypertension ICD Code: I10 - Essential (primary) hypertension Status: Chronic (4) Hyperlipidemia ICD Code: E78.5 - Hyperlipidemia, unspecified Status: Chronic (5) S/P lumbar spinal fusion ICD Code: Z98.1 - Arthrodesis status Brief History Mr Maher is a 56 year-old male who presented with intractable mechanical back pain and william evidence of lower extremity L4 radiculopathy. He was found to have severe degenerative disk disease at L3-4, adjacent to a multilevel fusion. He failed maximum nonsurgical management including multiple modalities of conservative treatment as well as pain management interventions by an interventional pain specialist. The patient has undergone a previous surgical procedure. A redo surgical decompression and arthrodesis were indicated as a last resort. CBC/BMP: 03/30/17 0635 03/30/17 0635 Significant Findings Laboratory Tests Test 03/28/17 17:22 03/29/17 04:31 03/30/17 06:35 03/30/17 09:30 Red Blood Count 3.32 MIL/MM3 (4.50-5.90) 3.31 MIL/MM3 (4.50-5.90) Hemoglobin 11.0 GM/DL (13.0-17.0) 11.1 GM/DL (13.0-17.0) Hematocrit 32.0 % (39.0-51.0) 32.2 % (39.0-51.0) Mean Platelet Volume 6.4 FL (7.0-11.0) 6.8 FL (7.0-11.0) Total Protein 6.0 GM/DL (6.4-8.2) Calcium Level 7.4 MG/DL (8.5-10.1) 7.8 MG/DL (8.5-10.1) Protein Corrected Calcium 8.0 MG/DL (8.5-10.1) Neutrophils (%) (Auto) 73.0 % (16.0-70.0) Monocytes (%) (Auto) 8.1 % (0.0-8.0) Blood Urea Nitrogen 5 MG/DL (7-18) Sodium Level 134 MEQ/L (136-145) Urine Occult Blood SMALL (NEG) Urine Mucus FEW /lpf (OCC) Imaging Last Impressions Chest X-Ray 03/30/17 0000 Signed Impressions: Service Date/Time: March 11:02 - CONCLUSION: No acute disease. Chris Jean MD Lumbar Spine X-Ray 03/28/17 0000 Signed Impressions: Service Date/Time: Tuesday, March 28, 2017 09:41 - CONCLUSION: Intraoperative images. Clinton Robles MD PE at Discharge Mr. Maher is alert, awake and oriented to time, place and person. Speech is fluent. Wound with clean and dry Optifoam dressing in place - incision not visualized. Cranial nerve examination: pupils to be equal, round and reactive to light. Extra-ocular movements are intact. Facial motor are normal and symmetrical. Gross hearing appears intact. Neck is soft and supple Muscle strength is normal in all muscle groups of both upper and lower extremities. Sensory examination mild numbness to left L4 distribution. There is a bilateral plantar flexion response. Respiratory: nonlabored Hospital Course Mr. Maher underwent an L3-L4 decompressive laminectomy, interbody arthrodesis using Peek cage filled with autologous iliac crest bone graft, L3-L4 posterolateral fusion using autologous bone graft, with demineralized bone matrix, L3-L4 instrumental fixation using transpedicular screws and rods, microsurgical dissection on Mar 28, 2017 for lumbar degenerative disk disease adjacent to a prior fusion. Mr. Maher was kept on bed rest for 48 hour following surgery. He was weaned off the [employer] pump. He was ambulated with PT. He has been cleared medically for discharge. He is discharged home with home health care in stable conditions. Wound care and activity restrictions were discussed. Pt Condition on Discharge: Stable Discharge Disposition: Disch w/ Home Health Serv Discharge Instructions DIET: Follow Instructions for: Heart Healthy Diet ACTIVITIES You can perform: Weight Bearing As Antonio ADDITIONAL Activity Instructio: Avoid strenuous activities, heavy lifting greater than 5 lbs, bending, twisting, excessive pushing/pulling or any other activities that may place stress on the spine. Wear TLSO brace when out of bed. Use assistive devices when ambulating. Avoid falls. Follow up Referrals: SNF/[facility]/ with [facility] New Medications: Commode 3-in-1 (Commode 3-in-1) 1 Mis Mis EA .ROUTE DIRECTED, #1 0 Refills Gabapentin (Gabapentin) 300 Mg Cap 600 MG PO TID for Pain, #60 CAP 0 Refills Hydrocodone-Acetaminophen (Lortab) 10-325 Mg Tab 1 TAB PO Q8HR PRN for PAIN, #90 TAB 0 Refills Walker Rolling/GetGo (Walker Rolling/GetGo) 1 Mis Mis EA .ROUTE DIRECTED, #1 Continued Medications: Adalimumab 2-Pack Inj (Humira 2-Pack Inj) 40 Mg/0.8 Ml Syr 40 MG SQ Q14D, #1 KIT 0 Refills Cetirizine (Cetirizine) 10 Mg Tab 10 MG PO HS, #90 Enalapril (Enalapril) 20 Mg Tab 40 MG PO DAILY, #30 TAB 0 Refills Gabapentin (Gabapentin) 300 Mg Cap 600 MG PO HS, #180 Hydrochlorothiazide (Hydrochlorothiazide) 12.5 Mg Tab 12.5 MG PO DAILY, #30 Metoprolol Succinate ER 24 HR (Metoprolol Succinate ER 24 HR) 100 Mg Tab 100 MG PO DAILY, #90 Pantoprazole (Pantoprazole) 40 Mg Tab 40 MG PO DAILY, #90 Paroxetine (Paroxetine) 20 Mg Tab 20 MG PO HS, #90 Discontinued Medications: Oxycodone-Acetaminophen (Oxycodone-Acetaminophen) 10-325 mg Tab 1 TAB PO Q4HR PRN for PAIN SCALE 1 TO 10 Tramadol (Tramadol) 50 Mg Tab 50 MG PO HS, #120 Amelia Norris Mar 31, 2017 12:24
--- NOTE | 2017-03-31 12:24 | HHI.FF ---
Face to Face Verification Diagnosis: (1) S/P lumbar spinal fusion Physical Therapy Order: Improve ambulation, Strength and gait training (gentle leg exercises as tolerated) Home Health Nursing Order: Medical education Signs/symptoms of disease process Medication education-adverse effect Wound care and dressing changes (please see wound care discharge orders ) Nursing assessment with vital signs I have seen patient Peter York Jr Nika on 03/31/17. My clinical findings support the need for the requested home health care services because: Ltd mobility - disease progression Deconditioned w/ increased weakness High risk of falls I certify that my clinical findings support that this patient is homebound because: Post-op weakness Unsteady gait/balance Amelia Norris Mar 31, 2017 12:24
[2017-03-31 12:30] VITALS: RESP 16
== END 2017-03-31 14:15 | disposition home health service (06) | DRG 460 ==
LOC: HSDI 06:25 → N03B 17:13 → N06A 03-29 16:47
PROVIDERS: ADMIT Neurological Surgery; ATTEND Neurological Surgery
PROC: 0SB20ZZ Excision of Lumbar Vertebral Disc, Open Approach (ICD-10-PCS; 1971-03-28)
PROC: 01NB0ZZ Release Lumbar Nerve, Open Approach (ICD-10-PCS; 2017-03-28)
PROC: 0SG00AJ Fusion of Lumbar Vertebral Joint with Interbody Fusion Device, Posterior Approach, Anterior Column, Open Approach (ICD-10-PCS; principal; 2017-03-28 08:30)
DX: M51.16 Intervertebral disc disorders with radiculopathy, lumbar region (principal); E83.51 Hypocalcemia; I10 Essential (primary) hypertension; E78.5 Hyperlipidemia, unspecified; J44.9 Chronic obstructive pulmonary disease, unspecified; F17.210 Nicotine dependence, cigarettes, uncomplicated; M06.9 Rheumatoid arthritis, unspecified; L40.9 Psoriasis, unspecified; M48.061 Spinal stenosis, lumbar region without neurogenic claudication; R50.9 Fever, unspecified; G25.81 Restless legs syndrome; Z98.1 Arthrodesis status
CPT/HCPCS: 71020; 72020; 72100; 76000; 80048; 81001; 82948; 84155; 85025; 86850; 86900; 86901; 86920; 86922; 87641; 94150; 94640; 94664; J0131; J0690; J1170; J1200; J1580; J1650; J1815; J3010; J3370; J7030; J7050; J7611; J7613; L0484